=== PATIENT | female | born 1960 | race Caucasian/White ===

== ENCOUNTER 2024-12-28 07:43 | Outpatient (OUT) | payer MEDICARE, SELFPAY ==
--- OUTSIDE RECORDS SUMMARY | 2024-12-16 14:00 | XMS_ITS | Encounter Summary ---
Author Organization [facility] Address [address] [place] [address] Care Team Providers Care Senior Policy Analyst Name Role Phone Hunter Sorensen MD Primary Care Provider [phone] Risa Reese NP Unavailable [phone] Encounter Details DateTypeDepartmentCare Team (Latest Contact Info)Uwnmbeqwhgb40/09/2025 2:00 PM EDTOffice Visit [facility] [address] [facility] [address] [place] [id number] Risa Reese NP [address] [facility] [address] [place] [address] BMI 37.0-37.9, adult (Primary Dx); Restless leg syndrome; Hypercholesterolemia; Essential hypertension; Moderate mixed hyperlipidemia not requiring statin therapy; Chronic obstructive pulmonary disease, unspecified COPD type (HCC); BRYAN (obstructive sleep apnea); Fibromyalgia; Bilateral leg edema; Generalized edema; Major depressive disorder, single episode, mild Social History Tobacco UseTypesPacks/DayYears UsedDateSmoking Tobacco: Every DayCigarettes Smokeless Tobacco: Never Tobacco Cessation:Ready to Q uit: Not Asked; Counseling Given: Yes Alcohol UseStandard Drinks/WeekCommentsYes0 (1 standard drink = 0.6 oz pure alcohol)caffeine intake:2-3 cups per dayPHQ-2AnswerDate RecordedPatient Health Questionnaire-2 [id number] and Gender InformationValueDate RecordedSex Assigned at BirthNot on fileLegal SexFemale 05/22/2022 7:09 PM EDTGender IdentityNot on fileSexual OrientationNot on file documented as of this encounter Last Filed Vital Signs Vital SignReadingTime TakenCommentsBlood Mavyzyoe905/6812/16/2024 2:09 PM EDT Ifwou484412/16/2024 2:09 PM EDTTemperature--Respiratory [id number] 2:09 PM EDTOxygen Xkqjizulax73%12/16/2024 2:09 PM EDTInhaled Oxygen Concentration-- Eexhom376 kg (237 lb)12/16/2024 2:09 PM SXFOxcgce484.2 cm (5' 7 )12/16/2024 2:09 PM EDTBody Mass Index37.121 2:09 PM EDTdocumented in this encounter Functional Status * Over the past 2 weeks, how often have you been bothered by any of the following problems?QuestionAnswerDate of AssessmentAuthorLittle interest or pleasure in doing thingsSeveral days12/16/2024 1:58 PM Rafat INGRAMeling down, depressed, or hopelessSeveral days12/16/2024 1:58 PM OPAL INGRAM Patient Health Questionnaire-2 Okuhh835 1:58 PM OPAL INGRAM * If you checked off any problems on this questionnaire so far,QuestionAnswer Date of AssessmentAuthorHow difficult have these problems made it for you to do your work, take care of things at home, or get along with other people? Somewhat pupypvwxb37/09/2025 1:58 PM OPAL INGRAM documented as of this encounter Progress Notes * Risa Reese NP - 12/16/2024 2:00 PM EDT Images from the original note were not included. Subjective Patient ID: Rosaline Childs is a 64 y.o. female who presents for No chief complaint on file.. Alia presents today for a medication follow up for pain medication and she is also having rightheel pain and a sore on lower calf of her right leg. Pain This is a chronic problem. The current episode started more than 1 year ago. The problem occurs constantly. The problem has been gradually worsening since onset. The pain occurs in the context of recent emotional stress. The pain is present in the neck, left hand, left heel, right ankle, right arm,right lower leg, right knee, lower back, left hip, right clavicle, right ribs, right shoulder, right upper leg, right elbow, right foot, left knee, left lower leg, left ankle, left arm, left clavicle, right wrist, upper back, right heel, right hand, left shoulder, left elbow, left foot, left upper leg, right hip and left forearm. The pain is severe. The symptoms are aggravated by any movement, exercise and inactivity. Associated symptoms include stiffness. Past treatments include OTC NSAID, prescription NSAID, heat pack, cold pack and acetaminophen. The treatment provided no relief. Swelling is present on the feet. Her past medical history is significant for chronic back pain. Over the past 2 weeks, how often have you been bothered by any of the following problems? Little interest or pleasure in doing things: Several days Feeling down, depressed, or hopeless: Several days Patient Health Questionnaire-2 Score: 2 If you checked off any problems on this questionnaire so far, How difficult have these problems made it for you to do your work, take care of things at home, or get along with other people?: Somewhat difficult Current Outpatient Medications on File Prior to Visit Medication Sig Dispense Refill albuterol HFA 90 mcg/act inhaler INHALE 1 PUFF BY MOUTH EVERY 4 HOURS NEEDED FOR WHEEZING FOR SHORTNESS OF BREATH 9 g 0 albuterol HFA 90 mcg/act inhaler Inhale 1 puff in the morning and 1 puff at noon and 1 puff in the evening and 1 puff before bedtime. 18 g 3 Blood Glucose Monitoring Suppl (Rhytec True Met Air Gluc Meter) w/Device kit USE TO CHECK GLUCOSE THREE TIMES DAILY (MORNING,NOON AND EVENING) 1 kit 0 busPIRone (Buspar) 15 MG tablet Take 1 tablet (15 mg) by mouth in the morning and 1 tablet (15 mg) in the evening and 1 tablet (15 mg) before bedtime. 90 tablet 11 carisoprodol (Soma) 350 MG tablet Take 1 tablet (350 mg) by mouth 3 (three) times a day as needed for muscle spasms 90 tablet 0 diclofenac (Voltaren) 75 MG EC tablet Take 1 tablet (75 mg) by mouth 2 (two) times a day as needed (pain) Do not crush, chew, or split. 180 tablet 3 DULoxetine (Cymbalta) [address] capsule Take 1 capsule (30 mg) by mouth in the morning and 1 capsule(30 mg) before bedtime. 180 capsule 3 Jafybrwfhvt-Qiualdohz-Qvkbkv (Trelegy Ellipta) 100-62.5-25 MCG/ACT aerosol powder Inhale 1 puff Daily 60 each 3 furosemide (Lasix) 20 MG tablet Take 0.5 tablets (10 mg) by mouth Daily 45 tablet 3 hydroCHLOROthiazide (HYDRODiuril) 12.5 MG tablet Take 1 tablet by mouth once daily 100 tablet 3 lisinopril 5 MG tablet Take 1 tablet (5 mg) by mouth Daily 90 tablet 1 omega-3 (Fish Oil) 1200 MG capsule 1 capsule 1 (one) time each day at the same time omeprazole (PriLOSEC) [address] capsule Take 20 mg by mouth in the morning. oxybutynin (Ditropan) 5 MG tablet Take 1 tablet (5 mg) by mouth in the morning and 1 tablet (5 mg) in the evening and 1 tablet (5 mg) before bedtime. 270 tablet 0 PARoxetine (Paxil) 40 MG tablet Take 1 tablet (40 mg) by mouth in the morning. 90 tablet 3 pramipexole (Mirapex) 1.5 MG tablet Take 1 tablet (1.5 mg) by mouth in the morning and 1 tablet (1.5 mg) before bedtime. 180 tablet 3 True Metrix Blood Glucose Test test strip USE 1 STRIP TO CHECK GLUCOSE THREE TIMES DAILY (MORNING,EVENING AND BEFORE BED) 100 each 3 No current facility-administered medications on file prior to visit. I have reviewed and reconciled the history and medication list with the patient today. No Known Allergies Social History Tobacco Use Smoking status: Every Day Current packs/day: 0.50 Types: Cigarettes Smokeless tobacco: Never Vaping Use Vaping status: Never Used Substance Use Topics Alcohol use: Yes Comment: caffeine intake:2-3 cups per day Drug use: Defer Family History Problem Relation Name Age of Onset Alzheimer's disease Father Diabetes Father Past Medical History: Diagnosis Date Allergies Anxiety Arthritis Diabetes (HCC) Fibromyalgia GERD (gastroesophageal reflux disease) History of hysterectomy Hypertension Irritable bowel disease Kidney stones Stroke (HCC) Past Surgical History: Procedure Laterality Date ANKLE SURGERY Right CARDIAC CATHETERIZATION 02/2018 CATARACT EXTRACTION 2016 COLONOSCOPY HYSTERECTOMY 1980 KNEE SURGERY Bilateral 2011 Visit Vitals Smoking Status Every Day Review of Systems Constitutional: Negative. HENT: Negative. Eyes: Negative. Respiratory: Negative. Cardiovascular: Positive for leg swelling. Weeping edema Gastrointestinal: Negative. Genitourinary: Negative. Musculoskeletal: Positive for arthralgias, back pain, gait problem, myalgias, neck pain and stiffness. Skin: Negative. Psychiatric/Behavioral: Negative. Objective Physical Exam Vitals reviewed. Constitutional: Appearance: Normal appearance. HENT: Head: Normocephalic and atraumatic. Nose: Nose normal. Mouth/Throat: Mouth: Mucous membranes are moist. Pharynx: Oropharynx is clear. Eyes: Conjunctiva/sclera: Conjunctivae normal. Cardiovascular: Rate and Rhythm: Normal rate and regular rhythm. Pulmonary: Effort: Pulmonary effort is normal. Breath sounds: Normal breath sounds. Abdominal: General: Bowel sounds are normal. Palpations: Abdomen is soft. Musculoskeletal: Right lower leg: Edema present. Left lower leg: Edema present. Skin: General: Skin is warm and dry. Neurological: Mental Status: She is alert. Motor: Weakness present. Gait: Gait abnormal. Psychiatric: Mood and Affect: Mood is anxious and depressed. Affect is tearful. Assessment/Plan Diagnoses and all orders for this visit: BMI 37.0-37.9, adult - Tirzepatide-Weight Management (Zepbound) 2.5 MG/0.5ML solution auto-injector; Inject 2.5 mg underthe skin 1 (one) time per week Will attempt prior auth. Restless leg syndrome - pramipexole (Mirapex) 1 MG tablet; Take 1 tablet (1 mg) by mouth in the morning and 1 tablet (1 mg) in the evening and 1 tablet (1 mg) before bedtime. This is a chronic medical condition. Retless leg is affecting her in the afternoon. Will add an afternoon dose. Hypercholesterolemia - Tirzepatide-Weight Management (Zepbound) 2.5 MG/0.5ML solution auto-injector; Inject 2.5 mg underthe skin 1 (one) time per week This is a chronic medical condition that is stable since last assessment. No changes in treatment are suggested at this time. Weight loss would assist with reducing the LDL. Essential hypertension - Tirzepatide-Weight Management (Zepbound) 2.5 MG/0.5ML solution auto-injector; Inject 2.5 mg underthe skin 1 (one) time per week - Comprehensive metabolic panel; Future - CBC; Future This is a chronic medical condition that is stable since last assessment. No changes in treatment are suggested at this time. Moderate mixed hyperlipidemia not requiring statin therapy - Tirzepatide-Weight Management (Zepbound) 2.5 MG/0.5ML solution auto-injector; Inject 2.5 mg underthe skin 1 (one) time per week Weight loss would assist with a reduction in LDL. Chronic obstructive pulmonary disease, unspecified COPD type (HCC) - Tirzepatide-Weight Management (Zepbound) 2.5 MG/0.5ML solution auto-injector; Inject 2.5 mg underthe skin 1 (one) time per week Breathing would improve with weight loss. BRYAN (obstructive sleep apnea) - Tirzepatide-Weight Management (Zepbound) 2.5 MG/0.5ML solution auto-injector; Inject 2.5 mg underthe skin 1 (one) time per week This is a chronic medical condition that is stable since last assessment. No changes in treatment are suggested at this time. Fibromyalgia - Tirzepatide-Weight Management (Zepbound) 2.5 MG/0.5ML solution auto-injector; Inject 2.5 mg underthe skin 1 (one) time per week - traMADol (Ultram) 50 MG tablet; Take 1 tablet (50 mg) by mouth every 6 (six) hours if needed for severe pain for up to 7 days Reduced weight would assist with a reduction in pain. Discussed risks of this class of medication including the potential for abuse, reliance. Discussed importance of properly storing and disposing of the medication. Reviewed the goals of treatment, including improving pain control and improving functional status. Medication choice and dosage is appropriate for patient's current medical conditions. Reviewed the rules and regulations surrounding prescription of opioids and compliance at length with the patient. Patient will be required to be seen in our office at least every three months for monitoring. At each follow up visit I will reassess the patient's need for the medication. Patient isto have this medication prescribed only through this office. Failure to follow the rules and regulations will result in tapering and discontinuation of medications if applicable. Patient verbalized understanding. OARRS Report was reviewed for this patient. Bilateral leg edema - furosemide (Lasix) 20 MG tablet; Take 1 tablet (20 mg) by mouth Daily Pt has not been taking medication because she does not like to urinate so much but she has pitting edema. Encouraged pt to take medication. Generalized edema - Comprehensive metabolic panel; Future Lasix increased Major depressive disorder, single episode, mild Medication as directed. Counseling recommended. Verbalizes understanding of the need to be seen in the ER for suicidal/homicidal ideation, excessive stress, elevated blood pressure or palpitations. Pt offers understanding of treatment plan. I discussed the side effects of the medications described and to seek medical care if they arise. Discussed stress mgmt strategies, social support and importance of healthy diet, exercise and regular sleep habits. Advised on relaxation methods to decrease anxiety and depression. No follow-ups on file. documented in this encounter Plan of Treatment DateTypeDepartmentCare Team (Latest Contact Info)Krqvhbbgciw85/29/2025 10:00 AM EDTOffice Visit [facility] [address] [place] [address] [place] [address] Risa Reese NP [address] [facility] [address] [place] [address] 01/06/2025 3:20 PM EDTOffice Visit [facility] [address] [place] [address] [place] [address] Rufino Rush DPM [address] [address] NameTypePriorityAssociated DiagnosesOrder ScheduleComprehensive metabolic panel LabRoutine Essential hypertension Generalized edema Expected: 12/16/2024 (Approximate), Expires: 12/16/2025BCLabRoutine Essential hypertension Expected: 12/16/2024 (Approximate), Expires: 12/16/2025documented as of this encounter Visit Diagnoses Diagnosis BMI 37.0-37.9, adult- Primary Restless leg syndrome Restless legs syndrome (RLS) Hypercholesterolemia Pure hypercholesterolemia Essential hypertension Unspecified essential hypertension Moderate mixed hyperlipidemia not requiring statin therapy Chronic obstructive pulmonary disease, unspecified COPD type (HCC) BRYAN (obstructive sleep apnea) Obstructive sleep apnea (adult) (pediatric) Fibromyalgia Unspecified myalgia and myositis Bilateral leg edema Edema Generalized edema Edema Major depressive disorder, single episode, mild documented in this encounter Additional Health Concerns AssessmentNoted TimePHQ-9 Depression Total Score: 13010/05/2024 9:53 AM EDT documented as of this encounter Care Teams Team MemberRelationshipSpecialtyStart DateEnd Date Hunter Sorensen MD [address] [address] PCP - GeneralFamily Medicine07/16/22 Risa Reese NP [address] [address] PCP - ACO Reach07/09/23documented as of this encounter
--- OUTSIDE RECORDS SUMMARY | 2024-12-16 14:20 | XMS_ITS | Encounter Summary ---
Author Organization [facility] Address [address] [address] Care Team Providers Care Oracle Business Analyst Name Role Phone Hunter Sorensen MD Primary Care Provider [phone] Risa Reese TRAVELING OPERATOR Unavailable [phone] Reason for Referral * Imaging (Urgent) - Pending ReviewSpecialtyDiagnoses / ProceduresReferred By ContactReferred To ContactCardiology Diagnoses PVD (peripheral vascular disease) Procedures Vascular US lower extremity arterial Doppler complete Rufino Rush DPM [address] [address] Phone: tel: fax: [facility] CardioPulmonary [address] [facility], [address] Referral IDStatusReasonStart DateExpiration DateVisits RequestedVisits [id number] Review Perform Procedure / Reason for Visit * ReasonCommentsFoot UlcerHeel wound Encounter Details DateTypeDepartmentCare Team (Latest Contact Info)Stxgrvevtft18/09/2025 2:20 PM EDTOffice Visit [facility] 112 [facility] [address] [place] [phone] Rufino Rush DPM [address] [address] Foot ulcer, right, with fat layer exposed (HCC) (Primary Dx); Cellulitis of right foot; Diabetes mellitus due to underlying condition with diabetic polyneuropathy, unspecified whether rat exterminator insulin use (HCC); PVD (peripheral vascular disease) Social History Tobacco UseTypesPacks/DayYears UsedDateSmoking Tobacco: Every DayCigarettes Smokeless Tobacco: Never Tobacco Cessation:Ready to Q uit: Not Asked; Counseling Given: Yes Alcohol UseStandard Drinks/WeekCommentsYes0 (1 standard drink = 0.6 oz pure alcohol)caffeine intake:2-3 cups per dayPHQ-2AnswerDate RecordedPatient Health Questionnaire-2 [id number] and Gender InformationValueDate RecordedSex Assigned at BirthNot on fileLegal SexFemale 05/22/2022 7:09 PM EDTGender IdentityNot on fileSexual OrientationNot on file documented as of this encounter Last Filed Vital Signs Vital SignReadingTime TakenCommentsBlood Pressure--Pulse--Temperature-- Respiratory [id number] 2:40 PM EDTOxygen Saturation--Inhaled Oxygen Concentration--Jcfmry842 kg (237 lb)12/16/2024 2:40 PM ILQPbuldd685.2 cm (5' 7 ) 12/16/2024 2:40 PM EDTBody Mass Index37.121 2:40 PM EDTdocumented in this encounter Functional Status * Over the past 2 weeks, how often have you been bothered by any of the following problems?QuestionAnswerDate of AssessmentAuthorLittle interest or pleasure in doing thingsSeveral days12/16/2024 1:58 PM Rafat INGRAMeling down, depressed, or hopelessSeveral days12/16/2024 1:58 PM OPAL INGRAM Patient Health Questionnaire-2 Hshps812 1:58 PM OPAL INGRAM * If you checked off any problems on this questionnaire so far,QuestionAnswer Date of AssessmentAuthorHow difficult have these problems made it for you to do your work, take care of things at home, or get along with other people? Somewhat ewciedxng70/09/2025 1:58 PM OPAL INGRAM documented as of this encounter Progress Notes * Rufino Rush DPM - 12/16/2024 2:20 PM EDT Patient: Rosaline Childs : 1960 PCP: Hunter Sorensen MD SUBJECTIVE This is a 64 y.o. female that presents today for a chief complaint of ulceration to right heel thatis been present for the past few weeks. Patient denies nausea vomiting chills but states that she has had minimal to no drainage from the area. States it has started his big callus to her right heel has since become open and very painful. She also has history of smoking 1 pack per day of cigarettes Patient is type 2 diabetic with peripheral neuropathy. Allergies: No Known Allergies Past Medical History: Past Medical History: Diagnosis Date Allergies Anxiety Arthritis Diabetes (HCC) Fibromyalgia GERD (gastroesophageal reflux disease) History of hysterectomy Hypertension Irritable bowel disease Kidney stones Stroke (HCC) Medications: Current Outpatient Medications: albuterol HFA 90 mcg/act inhaler, INHALE 1 PUFF BY MOUTH EVERY 4 HOURS NEEDED FOR WHEEZING FOR SHORTNESS OF BREATH, Disp: 9 g, Rfl: 0 albuterol HFA 90 mcg/act inhaler, Inhale 1 puff in the morning and 1 puff at noon and 1 puff in theevening and 1 puff before bedtime., Disp: 18 g, Rfl: 3 Blood Glucose Monitoring Suppl ([employer] True Met Air Gluc Meter) w/Device kit, USE TO CHECK GLUCOSE THREE TIMES DAILY (MORNING,NOON AND EVENING), Disp: 1 kit, Rfl: 0 busPIRone (Buspar) 15 MG tablet, Take 1 tablet (15 mg) by mouth in the morning and 1 tablet (15 mg)in the evening and 1 tablet (15 mg) before bedtime., Disp: 90 tablet, Rfl: 11 carisoprodol (Soma) 350 MG tablet, Take 1 tablet (350 mg) by mouth 3 (three) times a day as needed for muscle spasms, Disp: 90 tablet, Rfl: 0 cephalexin (Keflex) 500 MG capsule, Take 1 capsule (500 mg) by mouth in the morning and 1 capsule (500 mg) in the evening and 1 capsule (500 mg) before bedtime. Do all this for 10 days. Take one tablet by mouth three times daily., Disp: 30 capsule, Rfl: 0 diclofenac (Voltaren) 75 MG EC tablet, Take 1 tablet (75 mg) by mouth 2 (two) times a day as needed(pain) Do not crush, chew, or split., Disp: 180 tablet, Rfl: 3 DULoxetine (Cymbalta) [address] capsule, Take 1 capsule (30 mg) by mouth in the morning and 1 capsule (30 mg) before bedtime., Disp: 180 capsule, Rfl: 3 Nudnythazcz-Oeoeobwsu-Nzimcd (Trelegy Ellipta) 100-62.5-25 MCG/ACT aerosol powder , Inhale 1 puff Daily, Disp: 60 each, Rfl: 3 furosemide (Lasix) 20 MG tablet, Take 1 tablet (20 mg) by mouth Daily, Disp: 90 tablet, Rfl: 3 hydroCHLOROthiazide (HYDRODiuril) 12.5 MG tablet, Take 1 tablet by mouth once daily, Disp: 100 tablet, Rfl: 3 lisinopril 5 MG tablet, Take 1 tablet (5 mg) by mouth Daily, Disp: 90 tablet, Rfl: 1 omega-3 (Fish Oil) 1200 MG capsule, 1 capsule 1 (one) time each day at the same time, Disp: , Rfl: omeprazole (PriLOSEC) [address] capsule, Take 20 mg by mouth in the morning., Disp: , Rfl: oxybutynin (Ditropan) 5 MG tablet, Take 1 tablet (5 mg) by mouth in the morning and 1 tablet (5 mg)in the evening and 1 tablet (5 mg) before bedtime., Disp: 270 tablet, Rfl: 0 PARoxetine (Paxil) 40 MG tablet, Take 1 tablet (40 mg) by mouth in the morning., Disp: 90 tablet, Rfl: 3 pramipexole (Mirapex) 1 MG tablet, Take 1 tablet (1 mg) by mouth in the morning and 1 tablet (1 mg)in the evening and 1 tablet (1 mg) before bedtime., Disp: 270 tablet, Rfl: 3 Tirzepatide-Weight Management (Zepbound) 2.5 MG/0.5ML solution auto-injector, Inject 2.5 mg under the skin 1 (one) time per week, Disp: 2 mL, Rfl: 0 traMADol (Ultram) 50 MG tablet, Take 1 tablet (50 mg) by mouth every 6 (six) hours if needed for severe pain for up to 7 days, Disp: 28 tablet, Rfl: 0 True Metrix Blood Glucose Test test strip, USE 1 STRIP TO CHECK GLUCOSE THREE TIMES DAILY (MORNING,EVENING AND BEFORE BED), Disp: 100 each, Rfl: 3 Social History: Social History Socioeconomic History Marital status: Spouse name: Not on file Number of children: Not on file Years of education: Not on file Highest education level: Not on file Occupational History Not on file Tobacco Use Smoking status: Every Day Current packs/day: 0.50 Types: Cigarettes Smokeless tobacco: Never Vaping Use Vaping status: Never Used Substance and Sexual Activity Alcohol use: Yes Comment: caffeine intake:2-3 cups per day Drug use: Defer Sexual activity: Defer Other Topics Concern Not on file Social History Narrative Not on file Social Drivers of Health Financial Resource Strain: Not on file Food Insecurity: No Food Insecurity (11/25/2022) Received from [facility] Hunger Screening Within the past 12 months we worried whether our food would run out before we got money to buy more.: Never True Within the past 12 months the food we bought just didn't last and we didn't have money to get more.: Never True Transportation Needs: Not on file Physical Activity: Not on file Stress: Not on file Social Connections: Not on file Intimate Partner Violence: Not on file Housing Stability: Not on file ROS: Gastrointestinal: denies abdominal pain, ulcers, or changes in appetite or bowel habits Musculoskeletal: Positive generalized arthritis to joints and denies loss of strength. Cardiovascular: denies CP, palpitations, irregular rhythms. Positive history of CVA OBJECTIVE LE EXAM: DERM: negative hair growth to b/l feet with thin and ruborous skin with poor skin turgor noted. Posterior plantar right heel region has a 0.5 cm with 0.5 cm x 0.4 cm subcutaneous thickness depth ulceration with slight erythema surrounding wound borders and hyperkeratotic tissue with negative probe to bone +1 pitting edema to bilateral ankles VASC: non Palpable pedal pulsed b/l with warm to cool tibia to toes b/l NEURO: 5.07 [place] Melody monofilament test intact to digits and forefoot bilaterally 125Hz tuning fork diminished to 1st MPJ bilaterally ORTHO: +5/5 DF/PF/IN/EV right, +5/5 DF/PF/IN/EV left. 20 degrees inversion and 10 degrees eversion STJ b/l. Ankle ROM less than 10 degrees b/l. Positive pain on palpation to right heel ulceration XRAY: US: ASSESSMENT 1. Foot ulcer, right, with fat layer exposed (HCC) 2. Cellulitis of right foot 3. Diabetes mellitus due to underlying condition with diabetic polyneuropathy, unspecified whether rat exterminator insulin use (HCC) 4. PVD (peripheral vascular disease) PLAN Patient be scheduled for KRIS PVRs at [facility] Patient be placed on oral antibiotic Patient had follow up radiographs in future and review of labs as well as will slightly be scheduled for surgical intervention in the near future as fair has a very painful lesion to her posterior right heel and will need wound care at that time Patient to have x-rays on future visits Patient also apply Betadine daily with dry sterile dressing and showed how to apply today to the right heel ulceration Rufino Rush DPM documented in this encounter Miscellaneous Notes * Addendum Note - Rufino Rush DPM - 12/16/2024 2:20 PM EDTAddended by: RUFINO RUSH on: 12/17/2024 06:29 AM Modules accepted: Orders documented in this encounter Plan of Treatment DateTypeDepartmentCare Team (Latest Contact Info)Hyftrznowkr24/29/2025 10:00 AM EDTOffice Visit [facility] [address] [facility] [address] [place] [phone] Risa Reese NP [address] [facility] 110 [place] [address] 01/06/2025 3:20 PM EDTOffice Visit [facility] [address] [facility] 120 [place] [phone] Rufino Rush DPM [address] [facility] [address] [place] [address] NameTypePriorityAssociated DiagnosesOrder ScheduleVascular US lower extremity arterial Doppler completeVascular UltrasoundHigh Priority PVD (peripheral vascular disease) Ordered: 12/17/2024documented as of this encounter Visit Diagnoses Diagnosis Foot ulcer, right, with fat layer exposed (HCC)- Primary Cellulitis of right foot Diabetes mellitus due to underlying condition with diabetic polyneuropathy, unspecified whether fdc insulin use (HCC) PVD (peripheral vascular disease) Unspecified peripheral vascular disease documented in this encounter Additional Health Concerns AssessmentNoted TimePHQ-9 Depression Total Score: 13010/05/2024 9:53 AM EDT documented as of this encounter Care Teams Team MemberRelationshipSpecialtyStart DateEnd Date Hunter Sorensen MD 112 [facility] 110 [place] [address] [facility] Risa Reese NP 112 [facility] 110 [place] [address] PCP - ACO [facility]07/09/23documented as of this encounter
--- OUTSIDE RECORDS SUMMARY | 2024-12-23 10:30 | XMS_ITS | Encounter Summary ---
Author Organization [facility] Address [address] [place] [address] Care Team Providers Care Associate Manager Name Role Phone Hunter Sorensen MD Primary Care Provider [phone] Risa Reese CHRISTMAS TREE GRADER Unavailable [phone] Reason for Referral * Imaging (Routine) - Pending ReviewSpecialtyDiagnoses / ProceduresReferred By ContactReferred To ContactDiagnostic Radiology Diagnoses Osteomyelitis of ankle or foot, acute, right (HCC) Procedures MR foot right wo IV contrast Rufino Rush DPM [address] [address] Phone: tel: fax: [facility] Schedule fax: Referral IDStatusReasonStart DateExpiration DateVisits RequestedVisits [id number]/ Reason for Visit * ReasonCommentsFollow-upRT HEEL ULCER Encounter Details DateTypeDepartmentCare Team (Latest Contact Info)Xwzpruskcml47/16/2025 10:30 AM EDTOffice Visit [facility] 112 [facility] 120 [place] [phone] Rufino Rush DPM [address] [address] Osteomyelitis of ankle or foot, acute, right (HCC) (Primary Dx); PVD (peripheral vascular disease); Cellulitis of right foot; Diabetes mellitus due to underlying condition with diabetic polyneuropathy, unspecified whether senior care insulin use (HCC); Foot ulcer, right, with fat layer exposed (HCC) Social History Tobacco UseTypesPacks/DayYears UsedDateSmoking Tobacco: Every DayCigarettes Smokeless Tobacco: Never Tobacco Cessation:Ready to Q uit: Not Asked; Counseling Given: Yes Alcohol UseStandard Drinks/WeekCommentsYes0 (1 standard drink = 0.6 oz pure alcohol)caffeine intake:2-3 cups per dayPHQ-2AnswerDate RecordedPatient Health Questionnaire-2 Usqob247CommentsUnknownSex and Gender InformationValueDate RecordedSex Assigned at BirthNot on fileLegal SexFemale 05/22/2022 7:09 PM EDTGender IdentityNot on fileSexual OrientationNot on file documented as of this encounter Last Filed Vital Signs Vital SignReadingTime TakenCommentsBlood Pressure--Pulse--Temperature-- Respiratory Scpz6037 10:28 AM EDTOxygen Saturation--Inhaled Oxygen Concentration--Wakvgg063 kg (237 lb)12/23/2024 10:28 AM XSFDzkwyl329.2 cm (5' 7 )12/23/2024 10:28 AM EDTBody Mass Index37.121 10:28 AM EDTdocumented in this encounter Progress Notes * Rufino Rush, DPM - 12/23/2024 10:30 AM EDT Patient: Rosaline Childs : 1960 PCP: Hunter Sorensen MD SUBJECTIVE Pt present today for follow up of ulceration to right heel of foot. Pt denies any n/f/v/c. Patient states that they have been using the following treatments for the ulcer of betadine. Pt is a DM2. Pt also presents today for follow up of cellulitis to the right heel ulcer and has been taking oralabx with positive improvement. She also has hx of PVD and awaits rayo/pvr testing at [facility]. Allergies: No Known Allergies Past Medical History: [...] g, Rfl: 3 Blood Glucose Monitoring Suppl (Poolami True Met Air Gluc Meter) w/Device kit, [...] before bedtime., Disp: 180 capsule, Rfl: 3 Lgevmleuaky-Hnthgyczg-Relhym (Trelegy Ellipta) 100-62.5-25 MCG/ACT aerosol powder , [...] before bedtime., Disp: 270 tablet, Rfl: 3 traMADol (Ultram) 50 MG tablet, Take 1 tablet (50 mg) by mouth every 6 (six) hours if needed for severe pain for up to 7 days, Disp: 28 tablet, Rfl: 0 True Metrix Blood Glucose Test test strip, USE 1 STRIP TO CHECK GLUCOSE THREE TIMES DAILY (MORNING,EVENING AND BEFORE BED), Disp: 100 each, Rfl: 3 Zepbound 2.5 MG/0.5ML solution auto-injector, INJECT CONTENT OF 1 PEN SUBCUTANEOUSLY ONCE A WEEK, Disp: 4 mL, Rfl: 0 Social History: Social History Socioeconomic History Marital [...] Insecurity: No Food Insecurity (11/25/2022) Received from [facility] Hunger Screening Within the past 12 months [...] file Housing Stability: Not on file ROS: GI: denies loose or watery stool on antibiotic Musculoskeletal: Positive generalized arthritis to joints and denies loss of strength. Cardiovascular: denies CP, palpitations, irregular rhythms. Positive history of CVA OBJECTIVE LE EXAM: DERM: negative hair growth to b/l feet with thin and ruborous skin with poor skin turgor noted. Posterior plantar right heel region has a 0.5 cm with 0.5 cm x 0.4 cm subcutaneous thickness depth ulceration with greatly diminished erythema surrounding wound borders and hyperkeratotic tissue withnegative probe to bone +1 pitting edema to bilateral ankles VASC: non Palpable pedal pulsed b/l with warm to cool tibia to toes b/l NEURO: 5.07 [place] Melody monofilament test intact to digits and forefoot bilaterally 125Hz tuning fork diminished to 1st MPJ bilaterally ORTHO: +5/5 DF/PF/IN/EV right, +5/5 DF/PF/IN/EV left. 20 degrees inversion and 10 degrees eversion STJ b/l. Ankle ROM less than 10 degrees b/l. Positive pain on palpation to right heel ulceration XRAY: XR foot 3+ views right Imaging Result: Negative gas noted in tissue with area of ulceration present and negative gross osteolysis noted with slight sclerosis around area of ulceration however indeterminate for osteomyelitis and may follow up with MRI if necessary US: ASSESSMENT 1. Cellulitis of right foot 2. PVD (peripheral vascular disease) 3. Diabetes mellitus due to underlying condition with diabetic polyneuropathy, unspecified whether senior care insulin use (HCC) 4. Foot ulcer, right, with fat layer exposed (HCC) 5. Osteomyelitis of ankle or foot, acute, right (HCC) PLAN Patient be scheduled for RAYO PVRs at [facility] and will schedule MRI Continue with oral antibiotic Reviewed xrays today with patient Sharp debridement with 15 blade of subcutaneous ulceration to right foot with active bleeding notedand removal and excision of fibrotic and necrotic tissue to wound and DSD applied with neosporin. Pt to continue with betadine daily. Order MRI [facility] Rufino Rush DPM documented in this encounter Plan of Treatment DateTypeDepartmentCare Team (Latest Contact Info)Dzxugnkjykv78/29/2025 10:00 AM EDTOffice Visit [facility] [address] [facility] [address] [place] [address] Risa Reese NP [address] [facility] 110 [place] [address] 01/06/2025 3:20 PM EDTOffice Visit [facility] [address] [facility] 120 [place] [address] Rufino Rush DPM 3006 [facility] 5 [place] [address] NameTypePriorityAssociated DiagnosesOrder ScheduleMR foot right wo IV contrast ImagingRoutine Osteomyelitis of ankle or foot, acute, right (HCC) Ordered: 12/23/2024documented as of this encounter Procedures Procedure NamePriorityDate/TimeAssociated DiagnosisCommentsXR FOOT 3+ VIEWS NUTLDDlrpbci41/16/2025 10:44 AM EDT Foot ulcer, right, with fat layer exposed (HCC) documented in this encounter Results * XR foot 3+ views right (12/23/2024 10:44 AM EDT)Anatomical RegionLaterality ModalityLower Extremities, FootRightRadiographic ImagingSpecimen (Source) Anatomical Location / LateralityCollection Method / VolumeCollection Time Received Time Narrative 12/23/2024 10:46 AM EDT Imaging Result: Negative gas noted in tissue with area of ulceration present and negative gross osteolysis noted with slight sclerosis around area of ulceration however indeterminate for osteomyelitis and may follow up with MRI if necessary Authorizing ProviderResult TypeResult StatusNicholvalentina Rush DPMIMG XR PROCEDURESFinal Result documented in this encounter Visit Diagnoses Diagnosis Osteomyelitis of ankle or foot, acute, right (HCC)- Primary PVD (peripheral vascular disease) Unspecified peripheral vascular disease Cellulitis of right foot Diabetes mellitus due to underlying condition with diabetic polyneuropathy, unspecified whether senior care insulin use (HCC) Foot ulcer, right, with fat layer exposed (HCC) documented in this encounter Additional Health Concerns AssessmentNoted TimePHQ-9 Depression Total Score: 9:53 AM EDT documented as of this encounter Care Teams Team MemberRelationshipSpecialtyStart DateEnd Date Hunter Sorensen MD [address] [facility] 110 [place] [address] PCP - GeneralFamily Medicine07/16/22 Risa Reese NP [address] [facility] 110 [place] [address] PCP - ACO [facility]07/09/23documented as of this encounter
--- OUTSIDE RECORDS SUMMARY | 2024-12-23 10:45 | XMS_ITS | Encounter Summary ---
Author Organization [facility] Address [address] [place] [address] Care Team Providers Care Journeyman Apprentice Electricians Name Role Phone Hunter Sorensen MD Primary Care Provider [phone] Risa Reese METEOROLOGIST LIAISON Unavailable Encounter Details DateTypeDepartmentCare Team (Latest Contact Info)Trquhgnfiha81/16/2025 10:45 AM EDTAncillary Procedure [facility] [address] [place] [address] [place] [address] Social History Tobacco UseTypesPacks/DayYears UsedDateSmoking Tobacco: Every DayCigarettes Smokeless Tobacco: NeverAlcohol UseStandard Drinks/WeekCommentsYes0 (1 standard drink = 0.6 oz pure alcohol)caffeine intake:2-3 cups per dayPHQ-2AnswerDate RecordedPatient Health Questionnaire-2 Hysha446CommentsUnknown Sex and Gender InformationValueDate RecordedSex Assigned at BirthNot on file Legal UcrWuxrks80/15/2023 7:09 PM EDTGender IdentityNot on fileSexual OrientationNot on filedocumented as of this encounter Plan of Treatment DateTypeDepartmentCare Team (Latest Contact Info)Vdqhlmibzoh48/29/2025 10:00 AM EDTOffice Visit [facility] [address] [place] [address] [place] [address] Risa Reese NP [address] [place] 110 [place] [address] 01/06/2025 3:20 PM EDTOffice Visit [facility] [address] [place] [address] [place] [address] Rufino Rush, DPM 3006 [facility] 5 [place] [address] documented as of this encounter Procedures Procedure NamePriorityDate/TimeAssociated DiagnosisCommentsXR FOOT 3+ VIEWS IIRLEXvooqjh74/16/2025 10:44 AM EDT Foot ulcer, right, with [...] Result documented in this encounter Visit Diagnoses Not on filedocumented in this encounter Additional Health Concerns AssessmentNoted TimePHQ-9 Depression Total Score: 1307 9:53 AM EDT documented as of this encounter Care Teams Team MemberRelationshipSpecialtyStart DateEnd Date Hunter Sorensen MD [address] [facility] 110 [place] [address] PCP - GeneralFamily Medicine07/16/22 Risa Reese NP [address] [facility] 110 [place] [address] PCP - ACO [facility]07/09/23documented as of this encounter
--- OUTSIDE RECORDS SUMMARY | 2024-12-28 07:50 | XMS_ITS | Encounter Summary ---
Author Organization [facility] Address [address] [place] [address] [place] [address] Care Team Providers Care Food Science Professor Name Role Phone Hunter Sorensen MD Primary Care Provider [phone] Risa Reese LAUNDRY MACHINE TENDER Unavailable [phone] Encounter Details DateTypeDepartmentCare Team (Latest Contact Info)Gbyaxldpexi03/09/2025amboo flowsheet [facility] [address] [place] [address] [place] [address] Risa Reese NP [address] [place] 110 [place] [address] Social History Tobacco UseTypesPacks/DayYears UsedDateSmoking Tobacco: Every DayCigarettes Smokeless Tobacco: NeverAlcohol UseStandard Drinks/WeekCommentsYes0 (1 standard drink = 0.6 oz pure alcohol)caffeine intake:2-3 cups per dayPHQ-2AnswerDate RecordedPatient Health Questionnaire-2 Ycppa388CommentsUnknown Sex and Gender InformationValueDate RecordedSex Assigned at BirthNot on file Legal VvkGfdnyh18/15/2023 7:09 PM EDTGender IdentityNot on fileSexual OrientationNot on filedocumented as of this encounter Plan of Treatment DateTypeDepartmentCare Team (Latest Contact Info)Qogjnmzjxlm40/29/2025 10:00 AM EDTOffice Visit [facility] [place] [facility] [address] [place] [address] [place] [address] Risa Reese NP [address] [place] 110 [place], [place] [address] 01/06/2025 3:20 PM EDTOffice Visit [facility] [address] [facility] 120 [place] [address] Rufino Rush DPRyan 3006 [facility] 5 [place] [address] documented as of this encounter Visit Diagnoses Not on filedocumented in this encounter Additional Health Concerns AssessmentNoted TimePHQ-9 Depression Total Score: 13010/05/2024 9:53 AM EDT documented as of this encounter Care Teams Team MemberRelationshipSpecialtyStart DateEnd Date Hunter Sorensen MD [address] [place] [address] [place] [address] PCP - GeneralFamily Medicine07/16/22 Risa Reese NP [address] [place] [address] [place] [address] PCP - ACO [facility]07/09/23documented as of this encounter
--- OUTSIDE RECORDS SUMMARY | 2024-12-28 07:50 | XMS_ITS | Encounter Summary ---
Author Organization [facility] Address [address] [place] [address] Care Team Providers Care Vp Emerging Media Name Role Phone Hunter Sorensen MD Primary Care Provider Risa Reese SET UP MECHANIC COIL WINDING MACHINES Unavailable [phone] Encounter Details DateTypeDepartmentCare Team (Latest Contact Info)Ysukhdbavsg36/16/2025Travel Social History Tobacco UseTypesPacks/DayYears UsedDateSmoking Tobacco: Every DayCigarettes Smokeless Tobacco: NeverAlcohol UseStandard Drinks/WeekCommentsYes0 (1 standard drink = 0.6 oz pure alcohol)caffeine intake:2-3 cups per dayPHQ-2AnswerDate RecordedPatient Health Questionnaire-2 Lwctt143CommentsUnknown Sex and Gender InformationValueDate RecordedSex Assigned at BirthNot on file Legal XqmVgrpij80/15/2023 7:09 PM EDTGender IdentityNot on fileSexual OrientationNot on filedocumented as of this encounter Plan of Treatment DateTypeDepartmentCare Team (Latest Contact Info)Pdkxnxxfxww95/29/2025 10:00 AM EDTOffice Visit [facility] [address] [place] [address] [place] [address] Risa Reese NP [address] [place] 110 [place] [address] 01/06/2025 3:20 PM EDTOffice Visit [facility] [address] [place] [address] [place] [address] Rufino Rush DPM 3006 [facility] 5 [place] [address] documented as of this encounter Visit Diagnoses Not on filedocumented in this encounter Additional Health Concerns AssessmentNoted TimePHQ-9 Depression Total Score: 9:53 AM EDT documented as of this encounter Care Teams Team MemberRelationshipSpecialtyStart DateEnd Date Hunter Sorensen MD 112 [facility] 110 [place] [address] PCP - GeneralFamily Medicine07/16/22 Risa Reese NP 112 [facility] 110 [place] [address] PCP - ACO [facility]07/09/23documented as of this encounter
--- OUTSIDE RECORDS SUMMARY | 2024-12-28 07:50 | XMS_ITS | Clinical Summary ---
Author Organization [facility] Address [address] [facility] [place] [address] Care Team Providers Care Front End Specialist Name Role Phone Hunter Sorensen MD Primary Care Provider [phone] Risa Reese MUSIC REHABILITATION THERAPIST Unavailable [phone] Allergies No known active allergies Medications MedicationSigDispense QuantityRefillsLast FilledStart DateEnd DateStatus omeprazole (PriLOSEC) [address] capsule Take 20 mg by mouth in the morning.Active omega-3 (Fish Oil) 1200 MG capsule 1 capsule 1 (one) time each day at the same timeActive True Metrix Blood Glucose Test test strip Indications:Type 2 diabetes mellitus with other specified complication, without long-term current use of insulin (HCC)USE 1 STRIP TO CHECK GLUCOSE THREE TIMES DAILY (MORNING,EVENING AND BEFORE BED) 100 each ctive Blood Glucose Monitoring Suppl (ReliOn True Met Air Gluc Meter) w/Device kit Indications:Type 2 diabetes mellitus with other specified complication, without long-term current use of insulin (HCC)USE TO CHECK GLUCOSE THREE TIMES DAILY (MORNING,NOON AND EVENING) 1 kit 09/29/2023ctive busPIRone (Buspar) 15 MG tablet Indications:Depression, unspecified depression type,AnxietyTake 1 tablet (15 mg) by mouth in the morning and 1 tablet (15 mg) in the evening and 1 tablet (15 mg) before bedtime. 90 tablet 4Active lisinopril 5 MG tablet Indications:Essential hypertensionTake 1 tablet (5 mg) by mouth Daily 90 tablet 5Active PARoxetine (Paxil) 40 MG tablet Indications:Anxiety,Depression, unspecified depression typeTake 1 tablet (40 mg) by mouth in the morning. 90 tablet /21/2026Active carisoprodol (Soma) 350 MG tablet Indications:Muscle spasms of both lower extremitiesTake 1 tablet (350 mg) by mouth 3 (three) times a day as needed for muscle spasms 90 tablet 5Active diclofenac (Voltaren) 75 MG EC tablet Indications:Primary osteoarthritis of right hipTake 1 tablet (75 mg) by mouth 2 (two) times a day as needed (pain) Do not crush, chew, or split. 180 tablet 506Active Vvpwutmjkqq-Atyyxoiqr-Bjzqlx (Trelegy Ellipta) 100-62.5-25 MCG/ACT aerosol powder Indications:Chronic obstructive pulmonary disease, unspecified COPD type (HCC) Inhale 1 puff Daily 60 each 5Active DULoxetine (Cymbalta) [address] capsule Indications:Depression, unspecified depression typeTake 1 capsule (30 mg) by mouth in the morning and 1 capsule (30 mg) before bedtime. 180 capsule 5Active albuterol HFA 90 mcg/act inhaler Indications:Chronic obstructive pulmonary disease, unspecified COPD type (HCC) INHALE 1 PUFF BY MOUTH EVERY 4 HOURS NEEDED FOR WHEEZING FOR SHORTNESS OF BREATH 9 g 5Active hydroCHLOROthiazide (HYDRODiuril) 12.5 MG tablet Indications:Essential hypertensionTake 1 tablet by mouth once daily 100 tablet 5Active oxybutynin (Ditropan) 5 MG tablet Indications:Overactive bladderTake 1 tablet (5 mg) by mouth in the morning and 1 tablet (5 mg) in the evening and 1 tablet (5 mg)before bedtime. 270 tablet 5Active albuterol HFA 90 mcg/act inhaler Indications:Chronic obstructive pulmonary disease, unspecified COPD type (HCC) Inhale 1 puff in the morning and 1 puff at noon and 1 puff in the evening and 1 puff before bedtime. 18 g 5Active pramipexole (Mirapex) 1 MG tablet Indications:Restless leg syndromeTake 1 tablet (1 mg) by mouth in the morning and 1 tablet (1 mg) in the evening and 1 tablet (1 mg)before bedtime. 270 tablet /ctive furosemide (Lasix) 20 MG tablet Indications:Bilateral leg edemaTake 1 tablet (20 mg) by mouth Daily 90 tablet ctive Zepbound 2.5 MG/0.5ML solution auto-injector Indications:BMI 37.0-37.9, adult,BRYAN (obstructive sleep apnea)INJECT CONTENT OF 1 PEN SUBCUTANEOUSLY ONCE A WEEK 4 mL 12/22/2024tive furosemide (Lasix) 20 MG tablet Indications:Bilateral leg edemaTake 0.5 tablets (10 mg) by mouth Daily 45 tablet Discontinued(Reorder) pramipexole (Mirapex) 1.5 MG tablet Indications:Restless leg syndromeTake 1 tablet (1.5 mg) by mouth in the morning and 1 tablet (1.5 mg) before bedtime. 180 tablet Discontinued(Reorder) Tirzepatide-Weight Management (Zepbound) 2.5 MG/0.5ML solution auto-injector Indications:BMI 37.0-37.9, adult,Hypercholesterolemia,Essential hypertension, Moderate mixed hyperlipidemia not requiring statin therapy,Chronic obstructive pulmonary disease, unspecified COPD type (HCC),BRYAN (obstructive sleep apnea), FibromyalgiaInject 2.5 mg under the skin 1 (one) time per week 2 mL Discontinued traMADol (Ultram) 50 MG tablet Indications:FibromyalgiaTake 1 tablet (50 mg) by mouth every 6 (six) hours if needed for severe pain for up to 7 days 28 tablet /Expired cephalexin (Keflex) 500 MG capsule Indications:Cellulitis of right footTake 1 capsule (500 mg) by mouth in the morning and 1 capsule (500 mg) in the evening and 1 capsule(500 mg) before bedtime. Do all this for 10 days. Take one tablet by mouth three times daily. 30 capsule /Expired Active Problems ProblemNoted DateDiagnosed EbiiGncoemvl43/02/2352Nziwzti61/11/2023hest pain 12/09/2022cquired absence of uterus with remaining cervical stump09/24/2022 History of total puvkmdbwlipy59/18/8414Hxqdepf70/18/2023ardiac ischemia 09/24/2022ngina meznqvuxx58/18/2023arotid artery ujesxrwx16/18/2023hronic obstructive pulmonary qecuwzl8909/24/20223266Qxdjatjops47/18/2023ifficulty swallowing 09/24/2022Essential qpaiirjeemvc36/18/0937Gifobjbju69/18/2023 Bvxexntuulwdvpcfpkfx95/18/4843Vqpcfbhqyqdavb19/18/9779Vyeatxvp43/18/2023 Shgraninkcmi41/18/2023New daily persistent /18/2023OSA (obstructive sleep apnea)09/24/2022Overactive iubjesi0209/24/2022Restless leg syndrome 09/24/2022Iron deficiency iztnny4005/16/2020bnormal nuclear stress test12/05/2017 Overview (12/09/2022): Added automatically from request for surgery [id number] Musculoskeletal pain01/29/2011 Encounters DateTypeDepartmentCare RausBxbjusivcdb61/16/2025 10:45 AM EDTAncillary Procedure [facility] [address] [facility] [address] [place] [address] 12/23/2024 10:30 AM EDTOffice Visit [facility] [address] [facility] [address] [place] [address] Rufino Rush DPM Osteomyelitis of ankle or foot, acute, right (HCC) (Primary Dx); PVD (peripheral vascular disease); Cellulitis of right foot; Diabetes mellitus due to underlying condition with diabetic polyneuropathy, unspecified whether shelter insulin use ([facility]); Foot ulcer, right, with fat layer exposed ([facility])12/23/2024amboo flowsheet [facility] [address] [facility] [address] [place] [address] Rufino Rush DPM 12/23/20249944Jadfwx58/14/2025bstract [facility] [address] [facility] [address] [place] [address] Rufino Rush DPM 12/21/2024Refill [facility] [place] [facility] [address] [facility] [address] [place] [address] Risa Reese NP BMI 37.0-37.9, adult; BRYAN (obstructive sleep apnea)12/17/2024bstract [facility] [address] [facility] [address] [place] [address] Rufino Rush DPM 12/17/2024Refill [facility] [place] [facility] [address] [facility] [address] [place] [address] Marianna Vincent PA Xalbmvmrzcth67/09/2025 2:20 PM EDTOffice Visit [facility] [address] [facility] [address] [place] [address] Rufino Rush, DPRyan Foot ulcer, right, with fat layer exposed (HCC) (Primary Dx); Cellulitis of right foot; Diabetes mellitus due to underlying condition with diabetic polyneuropathy, unspecified whether shelter insulin use (HCC); PVD (peripheral vascular disease)12/16/2024 2:00 PM EDTOffice Visit [facility] [place] [facility] [address] [facility] [address] [place] [address] Risa Reese NP BMI 37.0-37.9, adult (Primary Dx); Restless leg syndrome; Hypercholesterolemia; Essential hypertension; Moderate mixed hyperlipidemia not requiring statin therapy; Chronic obstructive pulmonary disease, unspecified COPD type (HCC); BRYAN (obstructive sleep apnea); Fibromyalgia; Bilateral leg edema; Generalized edema; Major depressive disorder, single episode, mild12/16/2024amboo flowsheet [facility] [place] [facility] [address] [facility] [address] [place] [address] Risa Reese NP 12/16/20249938Ibugfq56/29/2025 10:00 AM EDTOffice Visit [facility] [place] [facility] [address] [facility] [address] [place] [address] Risa Reese, JESSICA Restless leg syndrome (Primary Dx); Bilateral leg edema10/05/2024amboo flowsheet [facility] [place] [facility] [address] [facility] [address] [place] [address] Risa Reese NP 10/05/20240059Mblsjc90/21/2025[facility] [address] [facility] [address] [place] [address] Amina Davidson MA Chronic obstructive pulmonary disease, unspecified COPD type (HCC)from Last 3 Months Immunizations ImmunizationAdministration DatesNext DueInfluenza, injectable, quadrivalent, preservative free12/24/2021,01/03/2021,02/07/2020 Family History Medical HistoryRelationNameCommentsAlzheimer's diseaseFatherDiabetesFather RelationNameStatusCommentsFatherDeceasedMotherDeceased Social History Tobacco UseTypesPacks/DayYears UsedDateSmoking Tobacco: Every DayCigarettes Smokeless Tobacco: Never Tobacco Cessation:Ready to Q uit: Not Asked; Counseling Given: Yes Alcohol UseStandard Drinks/WeekCommentsYes0 (1 standard drink = 0.6 oz pure alcohol)caffeine intake:2-3 cups per dayPHQ-2AnswerDate RecordedPatient Health Questionnaire-2 Hqlwe180CommentsUnknownSex and Gender InformationValueDate RecordedSex Assigned at BirthNot on fileLegal SexFemale 05/22/2022 7:09 PM EDTGender IdentityNot on fileSexual OrientationNot on file Last Filed Vital Signs Vital SignReadingTime TakenCommentsBlood Jgaozgib029/6810 2:09 PM EDT Mpmdb061512/16/2024 2:09 PM XRJZshoukshdsk74.9 ??C (96.7 ??F)05/13/2024 2:44 PM ESTRespiratory Clly0412 10:28 AM EDTOxygen Qanwlikzde81%12/16/2024 2:09 PM EDTInhaled Oxygen Concentration--Kowfrg309 kg (237 lb)12/23/2024 10:28 AM EDT Vimbjg647.2 cm (5' 7 )12/23/2024 10:28 AM EDTBody Mass Index37.121 10:28 AM EDT Plan of Treatment DateTypeDepartmentCare Team (Latest Contact Info)Vnpbhvfbttb68/29/2025 10:00 AM EDTOffice Visit [facility] [place] [facility] [address] [facility] [address] [place] [address] Risa Reese, MUSIC REHABILITATION THERAPIST [address] [facility] [address] [place] [address] 01/06/2025 3:20 PM EDTOffice Visit [facility] [address] [facility] [address] [place] [address] Rufino Rush, DPRyan [address] [facility] 5 [place] [address] Health MaintenanceDue DateLast DoneCommentsCT Quzrkjfnjrqv06/13/1961FIT-DNA 1960FIT1960FOBT1960 1751Tqdbdltnavgeq03/13/1961Diabetes: Retinopathy Sxnwcbthz21/13/1971Diabetes: Urine Protein Ovkltcvkr42/13/1980 Xpembnaxv60/06/2020, 08/11/2020, 01/13/2019, Additional history exists Diabetes: Hemoglobin A1C501/, 09/25/2023Influenza Vaccine (#1) /, 01/03/2021, 02/07/2020Medicare Annual Wellness (AWV) 601/, 12/10/20220853Dqdoudohlyu71Colorectal Cancer Hvlgwkrpb59/05/2029 Procedures Procedure NamePriorityDate/TimeAssociated DiagnosisCommentsXR FOOT 3+ VIEWS OMYMGFcrxfrc63/16/2025 10:44 AM EDT Foot ulcer, right, with fat layer exposed (HCC) POCT GLYCOSYLATED HEMOGLOBIN (HGB A1C)Djagjgb5003/30/2024 10:56 AM EST Type 2 diabetes mellitus without complication, without long-term current use of insulin (HCC) BI MAMMOGRAM SCREENING TOMOSYNTHESIS OIGQVJFRZUudswha18/04/2021 Encounter for screening mammogram for malignant neoplasm of breast Encounter for general adult medical examination without abnormal findings BLRQTNOODLUWxejoqr03/05/2019 12:00 PM EST from Last 3 Months or Most Recently Relevant to Health Maintenance Results * XR foot 3+ views right [...] with MRI if necessary Authorizing ProviderResult TypeResult StatusRufino Rush DPMIMG XR PROCEDURESFinal Result * POCT glycosylated hemoglobin (Hb A1C) docked device (03/30/2024 10:56 AM EST) ComponentValueRef RangeTest MethodAnalysis TimePerformed AtPathologist SignatureHemoglobin A1C6.3Specimen (Source)Anatomical Location / Laterality Collection Method / VolumeCollection TimeReceived TimeBloodVenous blood specimen / Wxxjcbw3903/30/2024 10:56 AM EST Narrative Authorizing ProviderResult TypeResult Dylon Reese NPPOINT OF CARE TEST ENTER/EDIT ORDERABLESFinal Result * Bilateral screening mammogram with tomosynthesis (08/11/2020)Anatomical Region LateralityModalityBreastBilateralMammographySpecimen (Source)Anatomical Location / LateralityCollection Method / VolumeCollection TimeReceived Time Narrative 08/11/2020 12:00 AM EDT PERFORMED AT [facility] LOCATION:[place] 112 110 RESULTS BELOW MAMM SCREENING BILATERAL W CAD WITH TOMOSYNTHESIS HISTORY: Screening. COMPARISON: 01/13/2019 FINDINGS: There are scattered areas of fibroglandular density. ??Negative for malignancy. Computer-aided detection was used in the interpretation of this examination. IMPRESSION: BIRADS 1 - Negative. ??Normal interval follow-up in 12 months. OVERALL ASSESSMENT- NEGATIVE. A letter of notification will be sent to the patient regarding the results. Finalized by Moses Cabral MD on 08/11/2020 1:07 PM 1 b MAMM 1 YR Procedure Note CONVERSION, GENERIC - 09/13/2022 PERFORMED AT [facility] LOCATION:[place] 112 110 RESULTS BELOW MAMM SCREENING BILATERAL W CAD WITH TOMOSYNTHESIS HISTORY: Screening. COMPARISON: 01/13/2019 FINDINGS: There are scattered areas of fibroglandular density. Negativefor malignancy. Computer-aided detection was used in the interpretation of thisexamination. IMPRESSION: BIRADS 1 - Negative. Normal interval follow-up in 12 months. OVERALL ASSESSMENT- NEGATIVE. A letter of notification will be sent to the patient regarding theresults. Finalized by Moses Cabral MD on 08/11/2020 1:07 PM 1 b MAMM 1 YR Authorizing ProviderResult TypeResult StatusHunter Sorensen MDIMG BI PROCEDURES Final Result * Colonoscopy (02/11/2019 12:00 PM EST)Anatomical RegionLateralityModality EndoscopySpecimen (Source)Anatomical Location / LateralityCollection Method / VolumeCollection TimeReceived Time02/11/2019 12:00 PM EST Narrative 02/11/2019 12:00 PM EST PERFORMED AT [facility] LOCATION:[id number] Procedure Note CONVERSION, GENERIC - 07/24/2022 PERFORMED AT [facility] LOCATION:[id number] Authorizing ProviderResult TypeResult StatusTroy Hoover MDENDOSCOPY PROCEDURE ORDERABLESFinal Result from Last 3 Months or Most Recently Relevant to Health Maintenance Insurance [address] [place] [address] Care Teams Team MemberRelationshipSpecialtyStart DateEnd Date Hunter Sorensen MD [address] [facility] 110 [place] [address] [facility] - [facility] Risa Reese NP [address] [facility] [address] [place] [address] PCP - [facility]07/09/23
--- OUTSIDE RECORDS SUMMARY | 2024-12-28 07:50 | XMS_ITS | Clinical Summary ---
Author Organization [facility] Address [address], [address] [place] [address] Care Team Providers Care Accounting Office Manager Name Role Phone Risa Reese YANIRA - MATERIAL HANDLER Primary Care Provider Allergies No known active allergies Medications MedicationSigDispense QuantityRefillsLast FilledStart DateEnd DateStatus busPIRone (BUSPAR) 5 MG tablet Take 5 mg by mouth 3 times dailyActive gabapentin (NEURONTIN) 100 MG capsule Take 100 mg by mouth 3 times daily..Active hydrochlorothiazide (HYDRODIURIL) 12.5 MG tablet Take 12.5 mg by mouth dailyActive lisinopril (PRINIVIL;ZESTRIL) 5 MG tablet Take 5 mg by mouth dailyActive omeprazole (PRILOSEC) 20 MG delayed release capsule Take 20 mg by mouth dailyActive oxybutynin (DITROPAN) 5 MG tablet Take 5 mg by mouth dailyActive Social History Tobacco UseTypesPacks/DayYears UsedDateSmoking Tobacco: Never Assessed CommentsNoSex and Gender InformationValueDate RecordedSex Assigned at BirthNot on fileLegal VecNxtcec42/10/2013 2:40 PM ESTGender IdentityNot on fileSexual OrientationNot on file Last Filed Vital Signs Vital SignReadingTime TakenCommentsBlood Ghnedunp263/6409 4:18 PM EDT Jykkj7888 4:18 PM QFCDhapygwbxyi27.6 ??C (99.6 ??F)11/23/2017 2:04 PM EDTRespiratory Ovhr8389 4:18 PM EDTOxygen Xyxrvracxf78%11/23/2017 4:18 PM EDTInhaled Oxygen Concentration--Dtbybc79.6 kg (180 lb)11/23/2017 2:04 PM EDT Xtdzly348.2 cm (5' 7 )11/23/2017 2:04 PM EDTBody Mass Index28.19011/23/2017 2:04 PM EDT Plan of Treatment Not on file [address] [place] [address] Care Teams Team MemberRelationshipSpecialtyStart DateEnd Date Risa Reese APRN - HOMAR PCP - GeneralFamily Nurse Practitioner11/23/17
--- OUTSIDE RECORDS SUMMARY | 2024-12-28 07:50 | XMS_ITS | Encounter Summary ---
Author Organization [facility] Address [address] [place] [address] Care Team Providers Care Refrigeration Person Name Role Phone Hunter Sorensen MD Primary Care Provider [phone] Risa Reese MASTER OF CEREMONIES Unavailable [phone] Encounter Details DateTypeDepartmentCare Team (Latest Contact Info)Rauphemgzmp18/10/2025bstract [facility] [address] [place] [address] [place] [address] Rufino Rush DPM [address] [facility] [address] [place] [address] Social History Tobacco UseTypesPacks/DayYears UsedDateSmoking Tobacco: Every DayCigarettes Smokeless Tobacco: NeverAlcohol UseStandard Drinks/WeekCommentsYes0 (1 standard drink = 0.6 oz pure alcohol)caffeine intake:2-3 cups per dayPHQ-2AnswerDate RecordedPatient Health Questionnaire-2 Spbsg216CommentsUnknown Sex and Gender InformationValueDate RecordedSex Assigned at BirthNot on file Legal XjtKmmrjl75/15/2023 7:09 PM EDTGender IdentityNot on fileSexual OrientationNot on filedocumented as of this encounter Plan of Treatment DateTypeDepartmentCare Team (Latest Contact Info)Wbfluljvurh85/29/2025 10:00 AM EDTOffice Visit [facility] [place] [facility] [address] [place] [address] [place] [address] Risa Reese NP [address] [place] [address] [place], [place] [address] 01/06/2025 3:20 PM EDTOffice Visit [facility] [address] [facility] [address] [place] [address] Rufino Rush DPRyan [address] [facility] [address] [place] [address] documented as of this encounter Visit Diagnoses Not on filedocumented in this encounter Additional Health Concerns AssessmentNoted TimePHQ-9 Depression Total Score: 13010/05/2024 9:53 AM EDT documented as of this encounter Care Teams Team MemberRelationshipSpecialtyStart DateEnd Date Hunter Sorensen MD [address] [facility] [address] [place] [address] PCP - GeneralFamily Medicine07/16/22 Risa Reese NP [address] [facility] [address] [place] [address] PCP - [facility]07/09/23documented as of this encounter
--- OUTSIDE RECORDS SUMMARY | 2024-12-28 07:50 | XMS_ITS | Encounter Summary ---
Author Organization [facility] Address [address] [place] [address] Care Team Providers Care General Farm Manager Name Role Phone Hunter Sorensen MD Primary Care Provider [phone] Risa Reese TONGUE CARRIER Unavailable Encounter Details DateTypeDepartmentCare Team (Latest Contact Info)Svstmoropnm78/09/2025Travel Social History Tobacco UseTypesPacks/DayYears UsedDateSmoking Tobacco: Every DayCigarettes Smokeless Tobacco: NeverAlcohol UseStandard Drinks/WeekCommentsYes0 (1 standard drink = 0.6 oz pure alcohol)caffeine intake:2-3 cups per dayPHQ-2AnswerDate RecordedPatient Health Questionnaire-2 Cpoij329CommentsUnknown Sex and Gender InformationValueDate RecordedSex Assigned at BirthNot on file Legal YzoOhnmkp48/15/2023 7:09 PM EDTGender IdentityNot on fileSexual OrientationNot on filedocumented as of this encounter Functional Status * Over the past 2 weeks, how often have you been bothered by any of the following problems?QuestionAnswerDate of AssessmentAuthorLittle interest or pleasure in doing thingsSeveral days12/16/2024 1:58 PM Rafat INGRAMeling down, depressed, or hopelessSeveral 12/16/2024 1:58 PM OPAL INGRAM Patient Health Questionnaire-2 Qaiev318 1:58 PM OPAL INGRAM * If you checked off any problems on this questionnaire so far,QuestionAnswer Date of AssessmentAuthorHow difficult have these problems made it for you to do your work, take care of things at home, or get along with other people? Somewhat xvmthgjmy80/09/2025 1:58 PM EDTOPAL ENGEL documented as of this encounter Plan of Treatment DateTypeDepartmentCare Team (Latest Contact Info)Ocajwibpfcc76/29/2025 10:00 AM EDTOffice Visit [facility] [place] [facility] [address] [place] [address] [place] [address] Risa Reese, TONGUE CARRIER [address] [place] [address] [place] [address] 01/06/2025 3:20 PM EDTOffice Visit [facility] [address] [place] [address] [place] [address] Rufino Rush, DPM [address] [facility] 5 [place] [address] documented as of this encounter Visit Diagnoses Not on filedocumented in this encounter Additional Health Concerns AssessmentNoted TimePQ-9 Depression Total Score: 13010/05/2024 9:53 AM EDT documented as of this encounter Care Teams Team MemberRelationshipSpecialtyStart DateEnd Date Hunter Sorensen MD [address] [place] [address] [place] [address] PCP - GeneralFamily Medicine07/16/22 Risa Reese NP [address] [place] [address] [place] [address] PCP - [facility]07/09/23documented as of this encounter
--- OUTSIDE RECORDS SUMMARY | 2024-12-28 07:50 | XMS_ITS | Encounter Summary ---
Author Organization [facility] Address [address] [place] [address] Care Team Providers Care Ndt Inspector Name Role Phone Hunter Sorensen MD Primary Care Provider [phone] Risa Reese STAVE LOG RIPSAW OPERATOR Unavailable [phone] Encounter Details DateTypeDepartmentCare Team (Latest Contact Info)Ncwwphsumfe28/16/2025amboo flowsheet [facility] [address] [place] [address] [place] [address] Rufino Rush, OMRA [address] [facility] 5 [place] [address] Social History Tobacco UseTypesPacks/DayYears UsedDateSmoking Tobacco: Every DayCigarettes Smokeless Tobacco: NeverAlcohol UseStandard Drinks/WeekCommentsYes0 (1 standard drink = 0.6 oz pure alcohol)caffeine intake:2-3 cups per dayPHQ-2AnswerDate RecordedPatient Health Questionnaire-2 Smcrm588CommentsUnknown Sex and Gender InformationValueDate RecordedSex Assigned at BirthNot on file Legal VeeHzwmys52/15/2023 7:09 PM EDTGender IdentityNot on fileSexual OrientationNot on filedocumented as of this encounter Plan of Treatment DateTypeDepartmentCare Team (Latest Contact Info)Wlnbmcoosca76/29/2025 10:00 AM EDTOffice Visit [facility] [place] [facility] [address] [place] [address] [place] [address] Risa Reese NP [address] [place] [address] [place], [place] [address] 01/06/2025 3:20 PM EDTOffice Visit [facility] [address] [facility] [address] [place] [address] Rufino Rush DPRyan [address] [facility] 5 [place] [address] documented as of this encounter Visit Diagnoses Not on filedocumented in this encounter Additional Health Concerns AssessmentNoted TimePHQ-9 Depression Total Score: 13010/05/2024 9:53 AM EDT documented as of this encounter Care Teams Team MemberRelationshipSpecialtyStart DateEnd Date Hunter Sorensen MD [address] [facility] 110 [place] [address] PCP - GeneralFamily Medicine07/16/22 Risa Reese NP [address] [facility] [address] [place] [address] PCP - [facility]07/09/23documented as of this encounter
--- OUTSIDE RECORDS SUMMARY | 2024-12-28 07:50 | XMS_ITS | Encounter Summary ---
Author Organization [facility] Address [address] [place] [address] Care Team Providers Care Flocculator Operator Name Role Phone Hunter Sorensen MD Primary Care Provider [phone] Risa Reese LIVESTOCK TRUCKER Unavailable [phone] Reason for Referral * Medications - DeniedSpecialtyDiagnoses / ProceduresReferred By ContactReferred To Contact Diagnoses BMI 37.0-37.9, adult BRYAN (obstructive sleep apnea) Risa Reese NP [address] [facility] [address] [place] [address] Phone: tel: fax: Referral IDStatusReasonStart DateExpiration DateVisits RequestedVisits [id number] Reason for Visit * ReasonCommentsMed Change Request Encounter Details DateTypeDepartmentCare Team (Latest Contact Info)Vgtrfwgquzf14/14/2025Refill [facility] [place] [facility] [address] [facility] 110 [place] [address] Risa Reese NP [address] [place] [address] [place] [address] BMI 37.0-37.9, adult; BRYAN (obstructive sleep apnea) Social History Tobacco UseTypesPacks/DayYears UsedDateSmoking Tobacco: Every DayCigarettes Smokeless Tobacco: NeverAlcohol UseStandard Drinks/WeekCommentsYes0 (1 standard drink = 0.6 oz pure alcohol)caffeine intake:2-3 cups per dayPHQ-2AnswerDate RecordedPatient Health Questionnaire-2 Xiikm386CommentsUnknown Sex and Gender InformationValueDate RecordedSex Assigned at BirthNot on file Legal YhlCkvuud83/15/2023 7:09 PM EDTGender IdentityNot on fileSexual OrientationNot on filedocumented as of this encounter Plan of Treatment DateTypeDepartmentCare Team (Latest Contact Info)Klqhdhgowma70/29/2025 10:00 AM EDTOffice Visit [facility] [place] [facility] [address] [place] [address] [place] [address] Risa Reese, LIVESTOCK TRUCKER [address] [place] [address] [place] [address] 01/06/2025 3:20 PM EDTOffice Visit [facility] [address] [place] [address] [place] [address] Rufino Rush DPM [address] [facility] 5 [place] [address] documented as of this encounter Visit Diagnoses Diagnosis BMI 37.0-37.9, adult BRYAN (obstructive sleep apnea) Obstructive sleep apnea (adult) (pediatric) documented in this encounter Additional Health Concerns AssessmentNoted TimePHQ-9 Depression Total Score: 13010/05/2024 9:53 AM EDT documented as of this encounter Care Teams Team MemberRelationshipSpecialtyStart DateEnd Date Hunter Sorensen MD [address] [place] [address] [place] [address] PCP - GeneralFamily Medicine07/16/22 Risa Reese, LIVESTOCK TRUCKER [address] [place] [address] [place] [address] PCP - ACO Re[facility]07/09/23documented as of this encounter
--- OUTSIDE RECORDS SUMMARY | 2024-12-28 07:50 | XMS_ITS | Clinical Summary ---
Author Organization Ordr[employer] tem Address [id number] [address] [place] [address] Care Team Providers Care Weld Fitter Name Role Phone Hunter Sorensen MD Primary Care Provider [phone] Allergies No known active allergies Medications MedicationSigDispense QuantityRefillsLast FilledStart DateEnd DateStatus hydroCHLOROthiazide (HYDRODIURIL) 12.5 mg tablet Take 12.5 mg by mouth daily.Active oxybutynin (DITROPAN) 5 mg tablet Take 5 mg by mouth 2 (two) times a day. Active omeprazole (PriLOSEC) 20 mg capsule Take 20 mg by mouth daily.Active lisinopril (PRINIVIL,ZESTRIL) 5 mg tablet Take 5 mg by mouth daily.Active DULoxetine (CYMBALTA) 30 mg capsule Take 1 capsule by mouth 2 (two) times a day.08/24/2019Active bdhjbubmybd-nlkknqcqh-haabnjve (TRELEGY ELLIPTA) 100-62.5-25 mcg blister with device Inhale 1 puff daily. 60 each ctive TRELEGY ELLIPTA 100-62.5-25 mcg blister with device INHALE 1 PUFF ONCE DAILY 60 each ctive albuterol (PROVENTIL HFA;VENTOLIN HFA) 90 mcg/actuation inhaler Indications:Chronic obstructive pulmonary disease, unspecified COPD type ([facility])Inhale 2 puffs every 4 (four) hours as needed for wheezing. 18 g 11010/11/2021ctive busPIRone (BUSPAR) 5 mg tablet Take 1 tablet (5 mg total) by mouth 3 (three) times a day.Active Active Problems ProblemNoted DateDiagnosed DateIron deficiency amtyga651Abnormal nuclear stress test12/05/2017Abnormal cardiovascular stress test12/05/2017 Overview (12/05/2017): Added automatically from request for surgery [id number] Chest pain Immunizations ImmunizationAdministration DatesNext DueInfluenza, Injectable, quadrivalent (PF) 02/07/2020 Family History Medical HistoryRelationNameCommentsAlzheimer's diseaseFatherSnoringFatherStroke FatherBreast cancerMaternal AuntCancerMotherOsteoarthritisMotherRelationName StatusCommentsFatherDeceasedMaternal AuntMotherAlive Social History Tobacco UseTypesPacks/DayYears UsedDateSmoking Tobacco: Every DayCigarettes0.345 Smokeless Tobacco: NeverAlcohol UseStandard Drinks/WeekCommentsYes0 (1 standard drink = 0.6 oz pure alcohol)ChildcareAnswerDate RecordedChildcareUnknown 08/19/2018EmploymentAnswerDate XenrubquDlmoxqmzpmJvmnbmj83/12/2019Hunger ScreeningAnswerDate RecordedWithin the past 12 months we worried whether our food would run out before we got money to buy more.Never True11/25/2022Within the past 12 months the food we bought just didn't last and we didn't have money to get more.Never True3Purpose - LifeAnswerDate RecordedPurpose and direction in prhvQflpkyj03/13/2021CommentsNoSex and Gender Information ValueDate RecordedSex Assigned at BirthNot on fileLegal HbrWrlbpd23/06/2015 11:40 AM EDTGender IdentityNot on fileSexual OrientationNot on file Last Filed Vital Signs Vital SignReadingTime TakenCommentsBlood Vdjokvfc468/70011/25/2022 10:15 AM EDT Tztie2951 9:29 AM QKRKqdpesufcuv88.7 ??C (98 ??F)11/25/2022 9:29 AM EDT Respiratory Jgwf579311/25/2022 9:29 AM EDTOxygen Xiketqvuyl28%11/25/2022 10:15 AM EDTInhaled Oxygen Concentration--Ikmdxz55.8 kg (198 lb)11/25/2022 9:29 AM EDT Apwimc186.2 cm (5' 7 )11/25/2022 9:29 AM EDTBody Mass Index31.01011/25/2022 9:29 AM EDT Plan of Treatment Health MaintenanceDue DateLast DoneCommentsDepression Wqhnawbrh69/13/1973Tobacco Kpnqaoosb93/13/1973DTaP,Tdap and Td Vaccines (1 - Tdap)08/21/1979Zoster (Shingles) Vaccine (1 of 2)2010dult BMI Rijtsryus04 COVID-19 Vaccine (2 - season)/Influenza Vaccine /, 01/03/2021, 02/07/2020 Medical Devices Not on file Insurance Care Teams Team MemberRelationshipSpecialtyStart DateEnd Date Hunter [place] [address] [place] [address] [facility]07/30/16
--- OUTSIDE RECORDS SUMMARY | 2024-12-28 07:50 | XMS_ITS | Encounter Summary ---
Author Organization [facility] Address [address] [place] [address] Care Team Providers Care Help Desk Representative Name Role Phone Hunter Sorensen MD Primary Care Provider [phone] Risa Reese MARKETING TECHNOLOGIST Unavailable [phone] Encounter Details DateTypeDepartmentCare Team (Latest Contact Info)Zfcdtrcgswm01/14/2025bstract [facility] [address] [place] [address] [place] [address] Rufino Rush DPM [address] [facility] 5 [place] [address] Social History Tobacco UseTypesPacks/DayYears UsedDateSmoking Tobacco: Every DayCigarettes Smokeless Tobacco: NeverAlcohol UseStandard Drinks/WeekCommentsYes0 (1 standard drink = 0.6 oz pure alcohol)caffeine intake:2-3 cups per dayPHQ-2AnswerDate RecordedPatient Health Questionnaire-2 Vvhwa147CommentsUnknown Sex and Gender InformationValueDate RecordedSex Assigned at BirthNot on file Legal BktXubkpo62/15/2023 7:09 PM EDTGender IdentityNot on fileSexual OrientationNot on filedocumented as of this encounter Plan of Treatment DateTypeDepartmentCare Team (Latest Contact Info)Hepwfrbebei96/29/2025 10:00 AM EDTOffice Visit [facility] [place] [facility] [address] [place] [address] [place] [address] Risa Reese NP [address] [place] [address] [place], [place] [address] 01/06/2025 3:20 PM EDTOffice Visit [facility] [address] [facility] [address] [place] [address] Rufino Rush DPRyan [address] [facility] 5 [place] [address] documented as of this encounter Visit Diagnoses Not on filedocumented in this encounter Additional Health Concerns AssessmentNoted TimePHQ-9 Depression Total Score: 13010/05/2024 9:53 AM EDT documented as of this encounter Care Teams Team MemberRelationshipSpecialtyStart DateEnd Date Hunter Sorensen MD [address] [facility] [address] [place] [address] PCP - GeneralFamily Medicine07/16/22 Risa Reese NP [address] [facility] [address] [place] [address] PCP - ACO [facility]07/09/23documented as of this encounter
--- OUTSIDE RECORDS SUMMARY | 2024-12-28 07:50 | XMS_ITS | Encounter Summary ---
Author Organization [facility] Address [address] [facility] [place] [address] Care Team Providers Care Pipe Smoking Machine Operator Name Role Phone Hunter Sorensen MD Primary Care Provider [phone] Risa Reese STEAM BONE PRESS TENDER Unavailable [phone] Encounter Details DateTypeDepartmentCare Team (Latest Contact Info)Wedtkxehwjt78/10/2025Refill [facility] [place] [facility] [address] [place] [address] [place] [address] Marianna Vincent PA [address] [place] [address] [place] [address] Fibromyalgia Social History Tobacco UseTypesPacks/DayYears UsedDateSmoking Tobacco: Every DayCigarettes Smokeless Tobacco: NeverAlcohol UseStandard Drinks/WeekCommentsYes0 (1 standard drink = 0.6 oz pure alcohol)caffeine intake:2-3 cups per dayPHQ-2AnswerDate RecordedPatient Health Questionnaire-2 Rdmfb358CommentsUnknown Sex and Gender InformationValueDate RecordedSex Assigned at BirthNot on file Legal JskEtnxip23/15/2023 7:09 PM EDTGender IdentityNot on fileSexual OrientationNot on filedocumented as of this encounter Miscellaneous Notes * Telephone Encounter - DAREK Shen - 12/17/2024 7:57 AM EDT Patient had exact same prescription in March for the Tramadol, and it had been over 6 months since she had an opioid filled at that time also. It was filled by Arnaldo. Called and left detailed message with pharmacy for them to proceed with filling Rx as was sent by Risa, as they have done it previously in the exact same situation earlier this year. * Telephone Encounter - Amina Davidson MA - 12/17/2024 6:05 AM EDT Hi, this is [facility] pharmacy calling in [place] [phone] calling on patient Rosaline Childs data both [phone], we received a train with all prescription for her. She has not filled this since March of this year. So it is been over 6 months since she is gotten a prescription for an opioid. Sowe are only able to do 1 every 8 h as needed of the train at all to get to the 30 MME required for t he initial prescription. So if you could either call to give a verbal or resend the prescription once again, [facility] in [place] [phone]. Thank you. documented in this encounter Plan of Treatment DateTypeDepartmentCare Team (Latest Contact Info)Islpvuegjhf18/29/2025 10:00 AM EDTOffice Visit [facility] [place] [facility] [address] [place] [address] [place] [address] Risa Reese, STEAM BONE PRESS TENDER [address] [place] [address] [place] [address] 01/06/2025 3:20 PM EDTOffice Visit [facility] [address] [place] [address] [place] [address] Rufino Rush DPM 3[address] [facility] 5 [place] [address] documented as of this encounter Visit Diagnoses Diagnosis Fibromyalgia Unspecified myalgia and myositis documented in this encounter Additional Health Concerns AssessmentNoted TimePHQ-9 Depression Total Score: 13010/05/2024 9:53 AM EDT documented as of this encounter Care Teams Team MemberRelationshipSpecialtyStart DateEnd Date Hunter Sorensen MD [address] [facility] 110 [place] [address] [facility] - [facility] Risa Reese NP [address] [facility] 110 [place] [address] PCP - [facility]07/09/23documented as of this encounter
--- NOTE | 2024-12-28 08:00 | CA_ITS ---
[facility] Test Date: 2024-12-28 Pat Name: RONN CORONEL Department: Room: - Gender: Female Field Checker: Henna Vale : 1960 Requested By: [place] Order Number: [id number] Reading MD: JAYCE BUSBY M.D. Interpretive Statements Summary of the findings: Right leg: KRIS= 1.26; TBI= 0.59. Doppler waveforms demonstrate multiphasic flow at the posterior tibial and dorsalis pedis arteries. Left leg: KRIS= 1.33; TBI= 0.54. Doppler waveforms demonstrate multiphasic flow at the posterior tibial and dorsalis pedis arteries. Segmental pressures: Segmental pressures suggest possible left femoropopliteal disease. Pulse volume recordings: PVRs at the high thigh, below knee, and ankle levels show normal waveforms. Conclusion: Right and left ankle-brachial indices are suggestive of normal overall arterial flow at rest. Toe-brachial indices are suggestive of PAD. Segmental pressures suggest possible left femoropopliteal disease. Pulse volume recordings indicate good overall resting arterial flow. Waveform analysis suggests normal bilateral arterial flow. The study shows evidence of PAD (possible left femoropopliteal disease) with normal overall arterial flow at rest. Electronically Signed On 12-28-2024 20:07:23 EDT by JAYCE BUSBY M.D.
== END 2024-12-28 07:44 | disposition home or self-care (01) ==
LOC: CARD 07:47
PROVIDERS: PCP Family Medicine
DX: I73.9 Peripheral vascular disease, unspecified (principal)
CPT/HCPCS: 93923

== ENCOUNTER 2024-12-31 13:36 | Outpatient (OUT) | payer MEDICARE, SELFPAY ==
--- OUTSIDE RECORDS SUMMARY | 2024-12-16 14:20 | XMS_ITS | Encounter Summary ---
Author Organization [facility] Address [address] [place] [address] Care Team Providers Care [employer] Professionals Name Role Phone Hunter Sorensen MD Primary Care Provider [phone] Risa Reese ACID CORRECTION HAND Unavailable [phone] Reason for Referral * Imaging (Urgent) - ClosedSpecialtyDiagnoses / ProceduresReferred By Contact Referred To ContactCardiology Diagnoses PVD (peripheral vascular disease) Procedures Vascular US lower extremity arterial Doppler complete Rufino Rush DPM [address] [address] Phone: tel: fax: [facility] CardioPulmonary [address] [facility], [address] Referral IDStatusReasonStart DateExpiration DateVisits RequestedVisits [id number] Perform Procedure / Reason for Visit * ReasonCommentsFoot UlcerHeel wound Encounter Details DateTypeDepartmentCare Team (Latest Contact Info)Tlgwqzvdjzo15/09/2025 2:20 PM EDTOffice Visit [facility] 112 [facility] 120 [place] [phone] Rufino Rush DPM [address] [address] Foot ulcer, right, with fat layer exposed (HCC) (Primary Dx); Cellulitis of right foot; Diabetes mellitus due to underlying condition with diabetic polyneuropathy, unspecified whether rodent exterminator insulin use (HCC); PVD (peripheral vascular disease) Social History Tobacco UseTypesPacks/DayYears UsedDateSmoking Tobacco: Every DayCigarettes Smokeless Tobacco: Never Tobacco Cessation:Ready to Q uit: Not Asked; Counseling Given: Yes Alcohol UseStandard Drinks/WeekCommentsYes0 (1 standard drink = 0.6 oz pure alcohol)caffeine intake:2-3 cups per dayPHQ-2AnswerDate RecordedPatient Health Questionnaire-2 Qjzpa387CommentsUnknownSex and Gender InformationValueDate RecordedSex Assigned at BirthNot on fileLegal SexFemale 05/22/2022 7:09 PM EDTGender IdentityNot on fileSexual OrientationNot on file documented as of this encounter Last Filed Vital Signs Vital SignReadingTime TakenCommentsBlood Pressure--Pulse--Temperature-- Respiratory Iqqk5221 2:40 PM EDTOxygen Saturation--Inhaled Oxygen Concentration--Ejvpxx290 kg (237 lb)12/16/2024 2:40 PM RNHYsbzdt440.2 cm (5' 7 ) 12/16/2024 2:40 PM EDTBody Mass Index37.121 2:40 PM EDTdocumented in this encounter Functional Status * Over the past 2 weeks, how often have you been bothered by any of the following problems?QuestionAnswerDate of AssessmentAuthorLittle interest or pleasure in doing thingsSeveral days12/16/2024 1:58 PM Rafat INGRAMeling down, depressed, or hopelessSeveral days12/16/2024 1:58 PM OPAL INGRAM Patient Health Questionnaire-2 Uyrkl527 1:58 PM OPAL INGRAM * If you checked off any problems on this questionnaire so far,QuestionAnswer Date of AssessmentAuthorHow difficult have these problems made it for you to do your work, take care of things at home, or get along with other people? Somewhat oglxnimmq97/09/2025 1:58 PM OPAL INGRAM documented as of [...] g, Rfl: 3 Blood Glucose Monitoring Suppl ([employer] True Met Air Gluc Meter) w/Device kit, [...] before bedtime., Disp: 180 capsule, Rfl: 3 Tawnfgurfze-Vvsfknkqm-Tytqew (Trelegy Ellipta) 100-62.5-25 MCG/ACT aerosol powder , [...] Insecurity: No Food Insecurity (11/25/2022) Received from [facility] Hunger Screening Within the past [...] cool tibia to toes b/l NEURO: 5.07 [place] Melody monofilament test intact to digits and forefoot bilaterally 125Hz tuning fork diminished to 1st MPJ bilaterally ORTHO: +5/5 DF/PF/IN/EV right, +5/5 DF/PF/IN/EV left. 20 degrees inversion and 10 degrees eversion STJ b/l. Ankle ROM less than 10 degrees b/l. Positive pain on palpation to right heel ulceration XRAY: US: ASSESSMENT 1. Foot ulcer, right, with fat layer exposed ([facility]) 2. Cellulitis of right foot 3. Diabetes mellitus due to underlying condition with diabetic polyneuropathy, unspecified whether rodent exterminator insulin use ([facility]) 4. PVD (peripheral vascular disease) PLAN Patient be scheduled for KRIS PVRs at [facility] Patient be placed on oral antibiotic Patient [...] Plan of Treatment DateTypeDepartmentCare Team (Latest Contact Info)Witbfozdhcv38/29/2025 10:00 AM EDTOffice Visit [facility] [address] [facility] 110 [place] [address] Risa Reese, JESSICA [address] [facility] 110 [place] [address] 01/06/2025 3:20 PM EDTOffice Visit [facility] [address] [facility] 120 [place] [phone] Rufino Rush DPM 3[address] [facility] 5 [place] [address] NameTypePriorityAssociated DiagnosesOrder ScheduleVascular US lower extremity arterial Doppler completeVascular UltrasoundHigh Priority PVD (peripheral vascular disease) Ordered: 12/17/2024documented as of this encounter Visit Diagnoses Diagnosis Foot ulcer, right, with fat layer exposed (HCC)- Primary Cellulitis of right foot Diabetes mellitus due to underlying condition with diabetic polyneuropathy, unspecified whether rodent exterminator insulin use (HCC) PVD (peripheral vascular disease) Unspecified peripheral vascular disease Osteomyelitis of ankle or foot, acute, right (HCC)- Primary PVD (peripheral vascular disease) Unspecified peripheral vascular disease Cellulitis of right foot Diabetes mellitus due to underlying condition with diabetic polyneuropathy, unspecified whether senior care insulin use (HCC) Foot ulcer, right, with fat layer exposed (HCC) documented in this encounter Additional Health Concerns AssessmentNoted TimePHQ-9 Depression Total Score: 13010/05/2024 9:53 AM EDT documented as of this encounter Care Teams Team MemberRelationshipSpecialtyStart DateEnd Date Hunter Sorensen MD [address] [facility] 110 [place] [address] PCP - GeneralFamily Medicine07/16/22 Risa Reese NP [address] [facility] 110 [place] [address] PCP - ACO [facility]07/09/23documented as of this encounter
--- OUTSIDE RECORDS SUMMARY | 2024-12-23 10:30 | XMS_ITS | Encounter Summary ---
Author Organization [facility] Address [address] [place] [address] Care Team Providers Care Paleontology Teacher Name Role Phone Hunter Sorensen MD Primary Care Provider [phone] Risa Reese CERTIFIED SCRUB TECH Unavailable [phone] Reason for Referral * Imaging (Routine) - Pending ReviewSpecialtyDiagnoses / ProceduresReferred By ContactReferred To ContactDiagnostic Radiology Diagnoses Osteomyelitis of ankle or foot, acute, right (HCC) Procedures MR foot right wo IV contrast Rufino Rush DPM [address] [address] Phone: tel: fax: [facility] Schedule fax: Referral IDStatusReasonStart DateExpiration DateVisits RequestedVisits [id number]/ Reason for Visit * ReasonCommentsFollow-upRT HEEL ULCER Encounter Details DateTypeDepartmentCare Team (Latest Contact Info)Uipjjthxhqo99/16/2025 10:30 AM EDTOffice Visit [facility] 112 [facility] 120 [place] [phone] Rufino Rush DPM [address] [address] Osteomyelitis of ankle or foot, acute, right (HCC) (Primary Dx); PVD (peripheral vascular disease); Cellulitis of right foot; Diabetes mellitus due to underlying condition with diabetic polyneuropathy, unspecified whether skilled nursing insulin use (HCC); Foot ulcer, right, with fat layer exposed (HCC) Social History Tobacco UseTypesPacks/DayYears UsedDateSmoking Tobacco: Every DayCigarettes Smokeless Tobacco: Never Tobacco Cessation:Ready to Q uit: Not Asked; Counseling Given: Yes Alcohol UseStandard Drinks/WeekCommentsYes0 (1 standard drink = 0.6 oz pure alcohol)caffeine intake:2-3 cups per dayPHQ-2AnswerDate RecordedPatient Health Questionnaire-2 Nzcfh386CommentsUnknownSex and Gender InformationValueDate RecordedSex Assigned at BirthNot on fileLegal SexFemale 05/22/2022 7:09 PM EDTGender IdentityNot on fileSexual OrientationNot on file documented as of this encounter Last Filed Vital Signs Vital SignReadingTime TakenCommentsBlood Pressure--Pulse--Temperature-- Respiratory Yzjy8001 10:28 AM EDTOxygen Saturation--Inhaled Oxygen Concentration--Gqwrzr304 kg (237 lb)12/23/2024 10:28 AM ZKWQzyjxo370.2 cm (5' 7 )12/23/2024 10:28 AM EDTBody [...] of PVD and awaits rayo/pvr testing at [facility]. Allergies: No Known Allergies Past Medical History: [...] g, Rfl: 3 Blood Glucose Monitoring Suppl (Vinted True Met Air Gluc Meter) w/Device kit, [...] before bedtime., Disp: 180 capsule, Rfl: 3 Vumeulltlmw-Jqqhevdko-Yusbbf (Trelegy Ellipta) 100-62.5-25 MCG/ACT aerosol powder , [...] Insecurity: No Food Insecurity (11/25/2022) Received from [facility] Hunger Screening Within the past 12 [...] cool tibia to toes b/l NEURO: 5.07 [place] Melody monofilament test intact to digits and [...] underlying condition with diabetic polyneuropathy, unspecified whether skilled nursing insulin use (HCC) 4. Foot ulcer, right, with fat layer exposed (HCC) 5. Osteomyelitis of ankle or foot, acute, right (HCC) PLAN Patient be scheduled for RAYO PVRs at [facility] and will schedule MRI Continue with oral antibiotic Reviewed xrays today with patient Sharp debridement with 15 blade of subcutaneous ulceration to right foot with active bleeding notedand removal and excision of fibrotic and necrotic tissue to wound and DSD applied with neosporin. Pt to continue with betadine daily. Order MRI [facility] Rufino Rush DPM documented in this encounter Plan of Treatment DateTypeDepartmentCare Team (Latest Contact Info)Kerxkistzhf65/29/2025 10:00 AM EDTOffice Visit [facility] [address] [facility] 110 [place] [address] Risa Reese NP [address] [facility] 110 [place] [address] 01/06/2025 3:20 PM EDTOffice Visit [facility] [address] [facility] 120 [place] [address] Rufino Rush DPM 3006 [facility] 5 [place] [address] NameTypePriorityAssociated DiagnosesOrder ScheduleMR foot right wo IV contrast ImagingRoutine Osteomyelitis of ankle or foot, acute, right (HCC) Ordered: 12/23/2024documented as of this encounter Procedures Procedure NamePriorityDate/TimeAssociated DiagnosisCommentsXR FOOT 3+ VIEWS CHXUAOpnybkn76/16/2025 10:44 AM EDT Foot ulcer, right, with [...] underlying condition with diabetic polyneuropathy, unspecified whether skilled nursing insulin use (HCC) Foot ulcer, right, with fat layer exposed (HCC) Osteomyelitis of ankle or foot, acute, right (HCC)- Primary PVD (peripheral vascular disease) Unspecified peripheral vascular disease Cellulitis of right foot Diabetes mellitus due to underlying condition with diabetic polyneuropathy, unspecified whether skilled nursing insulin use (HCC) Foot ulcer, right, with fat layer exposed (HCC) documented in this encounter Additional Health Concerns AssessmentNoted TimePHQ-9 Depression Total Score: 9:53 AM EDT documented as of this encounter Care Teams Team MemberRelationshipSpecialtyStart DateEnd Date Hunter Sorensen MD [address] [facility] 110 [place] [address] PCP - GeneralFatxly Medicine07/16/22 Risa Reese NP [address] [facility] 110 [place] [address] PCP - ACO [facility]07/09/23documented as of this encounter
--- OUTSIDE RECORDS SUMMARY | 2024-12-23 10:45 | XMS_ITS | Encounter Summary ---
Author Organization [facility] Address [address] [place] [address] Care Team Providers Care Health Education Director Name Role Phone Hunter Sorensen MD Primary Care Provider [phone] Risa Reese ENGRAVING OPERATOR Unavailable [phone] Encounter Details DateTypeDepartmentCare Team (Latest Contact Info)Cyoqckjgzbc98/16/2025 10:45 AM EDTAncillary Procedure [facility] [address] [place] [address] [place] [address] Social History Tobacco UseTypesPacks/DayYears UsedDateSmoking Tobacco: Every DayCigarettes Smokeless Tobacco: NeverAlcohol UseStandard Drinks/WeekCommentsYes0 (1 standard drink = 0.6 oz pure alcohol)caffeine intake:2-3 cups per dayPHQ-2AnswerDate RecordedPatient Health Questionnaire-2 Bwfmp961CommentsUnknown Sex and Gender InformationValueDate RecordedSex Assigned at BirthNot on file Legal MfkUiyxkh88/15/2023 7:09 PM EDTGender IdentityNot on fileSexual OrientationNot on filedocumented as of this encounter Plan of Treatment DateTypeDepartmentCare Team (Latest Contact Info)Wkzpadxmbhn18/29/2025 10:00 AM EDTOffice Visit [facility] [address] [place] [address] [place] [address] Risa Reese NP [address] [place] 110 [place] [address] 01/06/2025 3:20 PM EDTOffice Visit [facility] [address] [place] [address] [place] [address] Rufino Rush, DPM 3006 [facility] 5 [place] [address] documented as of this encounter Procedures Procedure NamePriorityDate/TimeAssociated DiagnosisCommentsXR FOOT 3+ VIEWS GSLJQErvkulc39/16/2025 10:44 AM EDT Foot ulcer, right, with [...] MemberRelationshipSpecialtyStart DateEnd Date Hunter Sorensen MD [address] [facility] 110 [place] [address] PCP - GeneralFamily Medicine07/16/22 Risa Reese NP [address] [facility] 110 [place] [address] PCP - ACO [facility]07/09/23documented as of this encounter
--- OUTSIDE RECORDS SUMMARY | 2024-12-31 13:40 | XMS_ITS | Encounter Summary ---
Author Organization [facility] Address [address] [place] [address] Care Team Providers Care Senior Mechanical Development Engineer Name Role Phone Hunter Maria MD Primary Care Provider [phone] Risa Reese REMELT FURNACE EXPEDITER Unavailable [phone] Encounter Details DateTypeDepartmentCare Team (Latest Contact Info)Jxstpjhmwqz30/21/2025linisync Result Encounter [facility] External Department Unsolicited Provider, Generic External Data Social History Tobacco UseTypesPacks/DayYears UsedDateSmoking Tobacco: Every DayCigarettes Smokeless Tobacco: NeverAlcohol UseStandard Drinks/WeekCommentsYes0 (1 standard drink = 0.6 oz pure alcohol)caffeine intake:2-3 cups per dayPHQ-2AnswerDate RecordedPatient Health Questionnaire-2 Itrbe898CommentsUnknown Sex and Gender InformationValueDate RecordedSex Assigned at BirthNot on file Legal AeeHqsbvw39/15/2023 7:09 PM EDTGender IdentityNot on fileSexual OrientationNot on filedocumented as of this encounter Plan of Treatment DateTypeDepartmentCare Team (Latest Contact Info)Kcnwvlvkode29/29/2025 10:00 AM EDTOffice Visit [facility] [place] [facility] [address] [place] [address] [place] [address] Risa Reese NP [address] [place] [address] [place], [place] [address] 01/06/2025 3:20 PM EDTOffice Visit [facility] [address] [place] [address] [place] [address] Rufino Rush, DPRyan [address] [address] documented as of this encounter Procedures Procedure NamePriorityDate/TimeAssociated DiagnosisCommentsSEGMENTAL BLOOD SVWFQFXX53/21/2025 9:16 AM EDT documented in this encounter Results * SEGMENTAL BLOOD PRESSURE (12/28/2024 9:16 AM EDT)Anatomical RegionLaterality ModalityRadiographic ImagingSpecimen (Source)Anatomical Location / Laterality Collection Method / VolumeCollection TimeReceived Time12/28/2024 9:16 AM EDT Narrative 12/28/2024 8:07 PM EDT [facility] ?[address] ? [place] [address] ? Cardiology Report ? Signed ? Patient: CORONELROSALINE H ?MR#: [id number] ?? : 1960 ?Acct:[id number] ?? Age/Sex: 64 / F ?ADM Date: 12/28/24 ?? Loc: CARD ? Attending Dr: RUFINO RUSH ? Ordering Physician: RUFINO RUSH ?? Date of Service: 12/28/24 ?? Procedure(s): CA segmental UE or LE DANNY ?? Accession Number(s): [id number] ? cc: HUNTER MARIA ; RUFINO RUSH ?[facility] ? Test Date: ?2024-12-28 ?? Pat Name: ? ROSALINE CORONEL ?Department: ? Room: ? - ?? Gender: ? Female ? Manager Trainee: ?? Henna Vale ?? : ?1960 ? Requested By: RUFINO RUSH ?? Order Number: [id number] ?Reading MD: ?? JAYCE ??Vivi BUSBY ? Interpretive Statements ?? Summary of the findings: ?? Right leg: KRIS= 1.26; TBI= 0.59. Doppler waveforms demonstrate multiphasic ?? flow at the posterior tibial and dorsalis pedis arteries. ?? Left leg: KRIS= 1.33; TBI= 0.54. Doppler waveforms demonstrate multiphasic ?? flow at the posterior tibial and dorsalis pedis arteries. ?? Segmental pressures: Segmental pressures suggest possible left ?? femoropopliteal disease. ?? Pulse volume recordings: PVRs at the high thigh, below knee, and ankle levels ?? show normal waveforms. ?? Conclusion: ?? Right and left ankle-brachial indices are suggestive of normal overall ?? arterial flow at rest. Toe-brachial indices are suggestive of PAD. Segmental ?? pressures suggest possible left femoropopliteal disease. Pulse volume ?? recordings indicate good overall resting arterial flow. Waveform analysis ?? suggests normal bilateral arterial flow. ? The study shows evidence of PAD (possible left femoropopliteal disease) with ?? normal overall arterial flow at rest. ? Electronically Signed On 12-28-2024 20:07:23 EDT by JAYCE ??Vivi BUSBY ? Dictated By: ?JAYCE BUSBY ? Signed By: ?12/28/24 2007 ?12/28/24 2007 ? DD/ 0916 ? TD/TT: ? Paperhanger Pipe: Procedure Note Radiology, Radiologist, MD - 12/28/2024 [place] [address] Cardiology Report Signed Patient: ROSALINE CORONEL R#: [id number] : 1Acct:[id number] Age/Sex: 64 / FADM Date: 12/28/24 Loc: CARD Attending Dr: RUFINO RUSH Ordering Physician: RUFINO RUSH Date of Service: 12/28/24 Procedure(s): CA segmental UE or LE DANNY Accession Number(s): [id number] cc: HUNTER MARIA ; RUFINO RUSH [facility] Test Date: 2024-12-28 Pat Name: ROSALINE CORONEL Department: Room: - Gender: Female Manager Trainee: Henna Vale : 1960 Requested By: RUFINO RUSH Order Number: [id number] Reading MD: JAYCE BUSBY M.D. Interpretive Statements Summary of the findings: Right leg: KRIS= 1.26; TBI= 0.59. Doppler waveforms demonstrate multiphasic flow at the posterior tibial and dorsalis pedis arteries. Left leg: KRIS= 1.33; TBI= 0.54. Doppler waveforms demonstrate multiphasic flow at the posterior tibial and dorsalis pedis arteries. Segmental pressures: Segmental pressures suggest possible left femoropopliteal disease. Pulse volume recordings: PVRs at the high thigh, below knee, and anklelevels show normal waveforms. Conclusion: Right and left ankle-brachial indices are suggestive of normal overall arterial flow at rest. Toe-brachial indices are suggestive of PAD.Segmental pressures suggest possible left femoropopliteal disease. Pulse volume recordings indicate good overall resting arterial flow. Waveform analysis suggests normal bilateral arterial flow. The study shows evidence of PAD (possible left femoropopliteal disease)with normal overall arterial flow at rest. Electronically Signed On 12-28-2024 20:07:23 EDT by JAYCE BUSBY M.D. Dictated By: JAYCE BUSBY Signed By:12/28/24200612/28/242006 DD/ 5 TD/TT: Paperhanger Pipe: Authorizing ProviderResult TypeResult StatusGeneric External Data ProviderIMG XR PROCEDURESFinal Result documented in this encounter Visit Diagnoses Not on filedocumented in this encounter Additional Health Concerns AssessmentNoted TimePHQ-9 Depression Total Score: 13010/05/2024 9:53 AM EDT documented as of this encounter Care Teams Team MemberRelationshipSpecialtyStart DateEnd Date Hunter Maria MD [address] [facility] 110 [place] [address] PCP - GeneralFamily Medicine07/16/22 Risa Reese NP [address] [facility] 110 [place] [address] [facility] 07/09/23documented as of this encounter
--- OUTSIDE RECORDS SUMMARY | 2024-12-31 13:40 | XMS_ITS | Clinical Summary ---
Author Organization [employer] tem Address [id number] [address] [place] [address] Care Team Providers Care Caster Helper Name Role Phone Hunter Sorensen MD Primary Care Provider [phone] Allergies No known active allergies Medications MedicationSigDispense [...] by mouth 2 (two) times a day.08/24/2019Active tqypynyzixn-fwqlmzaol-cltlbfxe (TRELEGY ELLIPTA) 100-62.5-25 mcg blister with device Inhale 1 puff daily. 60 each ctive TRELEGY ELLIPTA 100-62.5-25 mcg blister with device INHALE 1 PUFF ONCE DAILY 60 each ctive albuterol (PROVENTIL HFA;VENTOLIN HFA) 90 mcg/actuation inhaler Indications:Chronic obstructive pulmonary disease, unspecified COPD type ([facility])Inhale 2 puffs every 4 (four) hours as needed for wheezing. 18 g 11010/11/2021ctive busPIRone (BUSPAR) 5 mg tablet Take 1 tablet (5 mg total) by mouth 3 (three) times a day.Active Active Problems ProblemNoted DateDiagnosed DateIron deficiency nzlkzu001Abnormal nuclear stress test12/05/2017Abnormal cardiovascular stress test12/05/2017 Overview (12/05/2017): Added automatically from request for surgery [id number] Chest pain Immunizations ImmunizationAdministration DatesNext DueInfluenza, Injectable, quadrivalent (PF) 02/07/2020 Family History Medical HistoryRelationNameCommentsAlzheimer's diseaseFatherSnoringFatherStroke FatherBreast cancerMaternal AuntCancerMotherOsteoarthritisMotherRelationName StatusCommentsFatherDeceasedMaternal AuntMotherAlive Social History Tobacco UseTypesPacks/DayYears UsedDateSmoking Tobacco: Every DayCigarettes0.345 Smokeless Tobacco: NeverAlcohol UseStandard Drinks/WeekCommentsYes0 (1 standard drink = 0.6 oz pure alcohol)ChildcareAnswerDate RecordedChildcareUnknown 08/19/2018EmploymentAnswerDate IxgaktzgXimeeqqjvbXtlczsv80/12/2019Hunger ScreeningAnswerDate RecordedWithin the past 12 months we worried whether our food would run out before we got money to buy more.Never True11/25/2022Within the past 12 months the food we bought just didn't last and we didn't have money to get more.Never True3Purpose - LifeAnswerDate RecordedPurpose and direction in wpsbZlzfvkj97/13/2021CommentsNoSex and Gender Information ValueDate RecordedSex Assigned at BirthNot on fileLegal QfbCgszbc50/06/2015 11:40 AM EDTGender IdentityNot on fileSexual OrientationNot on file Last Filed Vital Signs Vital SignReadingTime TakenCommentsBlood Zsuraxwc058/70011/25/2022 10:15 AM EDT Hecgi4681 9:29 AM DLSMdjgkopdgqd90.7 ??C (98 ??F)11/25/2022 9:29 AM EDT Respiratory Jwld549311/25/2022 9:29 AM EDTOxygen Zwkizrwcvv84%11/25/2022 10:15 AM EDTInhaled Oxygen Concentration--Rvohax13.8 kg (198 lb)11/25/2022 9:29 AM EDT Veobde384.2 cm (5' 7 )11/25/2022 9:29 AM EDTBody Mass Index31.01011/25/2022 9:29 AM EDT Plan of Treatment Health MaintenanceDue DateLast DoneCommentsDepression Mnvlekzqg24/13/1973Tobacco Erzdgexzj23/13/1973DTaP,Tdap and Td Vaccines (1 - Tdap)08/21/1979Zoster (Shingles) Vaccine (1 of 2)2010dult BMI Khqyxvrcl31 COVID-19 Vaccine (2 - season)/Influenza Vaccine /, 01/03/2021, 02/07/2020 Medical Devices Not on file Insurance Care Teams Team MemberRelationshipSpecialtyStart DateEnd Date Hunter Sorensen [place] [address] [place] [address] [facility]07/30/16
--- OUTSIDE RECORDS SUMMARY | 2024-12-31 13:40 | XMS_ITS | Encounter Summary ---
Author Organization [facility] Address [address] [place] [address] Care Team Providers Care Educational Program Assistant Name Role Phone Hunter Sorensen MD Primary Care Provider [phone] Risa Reese SENIOR FRONT END ENGINEER Unavailable [phone] Encounter Details DateTypeDepartmentCare Team (Latest Contact Info)Wlcaghihbnw37/23/2025bstract [facility] [address] [place] [address] [place] [address] Rufino Rush DPM 3006 [facility] 5 [place] [address] Social History Tobacco UseTypesPacks/DayYears UsedDateSmoking Tobacco: Every DayCigarettes Smokeless Tobacco: NeverAlcohol UseStandard Drinks/WeekCommentsYes0 (1 standard drink = 0.6 oz pure alcohol)caffeine intake:2-3 cups per dayPHQ-2AnswerDate RecordedPatient Health Questionnaire-2 Mptbs015CommentsUnknown Sex and Gender InformationValueDate RecordedSex Assigned at BirthNot on file Legal PhwZugcbg25/15/2023 7:09 PM EDTGender IdentityNot on fileSexual OrientationNot on filedocumented as of this encounter Plan of Treatment DateTypeDepartmentCare Team (Latest Contact Info)Tmzwsuirmsi51/29/2025 10:00 AM EDTOffice Visit [facility] [place] [facility] [address] [place] [address] [place] [address] Risa Reese NP [address] [place] [address] [place], [place] [address] 01/06/2025 3:20 PM EDTOffice Visit [facility] [address] [facility] 120 [place] [address] Rufino Rush DPRyan 3006 [facility] 5 [place] [address] documented as of this encounter Visit Diagnoses Not on filedocumented in this encounter Additional Health Concerns AssessmentNoted TimePHQ-9 Depression Total Score: 13010/05/2024 9:53 AM EDT documented as of this encounter Care Teams Team MemberRelationshipSpecialtyStart DateEnd Date Hunter Sorensen MD [address] [facility] 110 [place] [address] PCP - GeneralFamily Medicine07/16/22 Risa Reese NP [address] [facility] 110 [place] [address] PCP - ACO Reach07/09/23documented as of this encounter
--- OUTSIDE RECORDS SUMMARY | 2024-12-31 13:40 | XMS_ITS | Clinical Summary ---
Author Organization [facility] Address [address] [facility] [address], [address] [place] [address] Care Team Providers Care Charging Plug Placer Name Role Phone Risa Reese YANIRA - MANAGER MILITARY Primary Care Provider Allergies No known active [...] InformationValueDate RecordedSex Assigned at BirthNot on fileLegal MutGyazho02/10/2013 2:40 PM ESTGender IdentityNot on fileSexual OrientationNot on file Last Filed Vital Signs Vital SignReadingTime TakenCommentsBlood Jsacplag865/6409 4:18 PM EDT Ivmby6479 4:18 PM KSYSvjwiewyocb13.6 ??C (99.6 ??F)11/23/2017 2:04 PM EDTRespiratory Toru9522 4:18 PM EDTOxygen Natxdhjwca88%11/23/2017 4:18 PM EDTInhaled Oxygen Concentration--Crxsrc45.6 kg (180 lb)11/23/2017 2:04 PM EDT Olyiud129.2 cm (5' 7 )11/23/2017 2:04 PM EDTBody Mass Index28.19011/23/2017 2:04 PM EDT Plan of Treatment Not on file Insurance [address] [place] [address] Care Teams Team MemberRelationshipSpecialtyStart DateEnd Date Risa Reese APRN - HOMAR PCP - GeneralFamily Nurse Practitioner11/23/17
--- OUTSIDE RECORDS SUMMARY | 2024-12-31 13:41 | XMS_ITS | Clinical Summary ---
Author Organization [facility] Address [address] [facility] [place] [address] Care Team Providers Care Eating Disorder Psychologist Name Role Phone Hunter Maria MD Primary Care Provider Risa Reese HARDWOOD FINISHER Unavailable Allergies No known active allergies Medications MedicationSigDispense [...] crush, chew, or split. 180 tablet 506Active Bhigvidkotj-Vzwsthxpt-Sjzadj (Trelegy Ellipta) 100-62.5-25 MCG/ACT aerosol powder Indications:Chronic [...] 30 capsule /Expired Active Problems ProblemNoted DateDiagnosed VsfcZqjxmgvg72/02/2378Ggdkiay09/11/2023hest pain 12/09/2022cquired absence of uterus with remaining cervical stump09/24/2022 History of total gzniwlurwgto03/18/3033Thojulx42/18/2023ardiac ischemia 09/24/2022ngina ehtayefbq63/18/2023arotid artery anbepzqk87/18/2023hronic obstructive pulmonary fultaxn9209/24/20220308Qqtcfexdlj62/18/2023ifficulty swallowing 09/24/2022Essential xnnrhssfpqny44/18/6552Envekqnfr98/18/2023 Psjbssogcjsdsgcxaswg46/18/1376Vyrgtydkanqarh66/18/6515Gmegauip71/18/2023 Hrtajiriiyoc26/18/2023New daily persistent kqnavefd05/18/2023OSA (obstructive sleep apnea)09/24/2022Overactive ljlmjuw7209/24/2022Restless leg syndrome 09/24/2022Iron deficiency msawbe4005/16/2020bnormal nuclear stress test12/05/2017 Overview (12/09/2022): Added automatically from request for surgery [id number] Musculoskeletal pain01/29/2011 Encounters DateTypeDepartmentCare ZalsJruuhcxxgfz62/23/2025bstract [facility] [address] [address] Rufino Rush DPM 12/28/2024linisync Result Encounter [facility] External Department Unsolicited Provider, Generic External Data 12/23/2024 10:45 AM EDTAncillary Procedure [facility] [address] [address] 12/23/2024 10:30 AM EDTOffice Visit [facility] [address] [facility] 120 [place] [address] Rufino Rush DPM Osteomyelitis of ankle or foot, acute, right (HCC) (Primary Dx); PVD (peripheral vascular disease); Cellulitis of right foot; Diabetes mellitus due to underlying condition with diabetic polyneuropathy, unspecified whether residential insulin use (HCC); Foot ulcer, right, with fat layer exposed (HCC)5Bamboo flowsheet [facility] [address] [facility] 120 [place] [address] Rufino Rush DPM 12/23/20248951Ybjofx04/14/2025bstract [facility] [address] [facility] [address] [place] [address] Rufino Rush DPM 12/21/2024Refill [facility] [place] [facility] [address] [facility] 110 [place] [address] Risa Reese NP BMI 37.0-37.9, adult; BRYAN (obstructive sleep apnea)12/17/2024bstract [facility] [address] [facility] [address] [place] [address] Rufino Rush DPM 12/17/2024Refill [facility] [place] [facility] [address] [facility] 110 [place] [address] Marianna Vincent PA Iiarmrnvvnga24/09/2025 2:20 PM EDTOffice Visit [facility] [address] [facility] [address] [place] [address] Rufino Rush, DPRyan Foot ulcer, right, with fat layer exposed (HCC) (Primary Dx); Cellulitis of right foot; Diabetes mellitus due to underlying condition with diabetic polyneuropathy, unspecified whether residential insulin use (HCC); PVD (peripheral vascular disease)12/16/2024 2:00 PM EDTOffice Visit [facility] [place] [facility] [address] [facility] [address] [place] [address] Risa Reese NP BMI 37.0-37.9, adult (Primary Dx); Restless leg syndrome; Hypercholesterolemia; Essential hypertension; Moderate mixed hyperlipidemia not requiring statin therapy; Chronic obstructive pulmonary disease, unspecified COPD type (HCC); BRYAN (obstructive sleep apnea); Fibromyalgia; Bilateral leg edema; Generalized edema; Major depressive disorder, single episode, mild12/16/2024amboo flowsheet [facility] [place] [facility] [address] [facility] [address] [place] [address] Risa Reese, JESSICA 12/16/20248417Jdgfld62/29/2025 10:00 AM EDTOffice Visit [facility] [place] [facility] [address] [place] [address] [place] [address] Risa Reese, JESSICA Restless leg syndrome (Primary Dx); Bilateral leg edema10/05/2024amboo flowsheet [facility] [place] [facility] [address] [facility] [address] [place] [address] Risa Reese, JESSICA 10/05/2024Travelfrom Last 3 Months Immunizations ImmunizationAdministration DatesNext DueInfluenza, injectable, quadrivalent, preservative free12/24/2021,01/03/2021,02/07/2020 Family History Medical HistoryRelationNameCommentsAlzheimer's diseaseFatherDiabetesFather RelationNameStatusCommentsFatherDeceasedMotherDeceased Social History Tobacco UseTypesPacks/DayYears UsedDateSmoking Tobacco: Every DayCigarettes Smokeless Tobacco: Never Tobacco Cessation:Ready to Q uit: Not Asked; Counseling Given: Yes Alcohol UseStandard Drinks/WeekCommentsYes0 (1 standard drink = 0.6 oz pure alcohol)caffeine intake:2-3 cups per dayPHQ-2AnswerDate RecordedPatient Health Questionnaire-2 Gncxa736CommentsUnknownSex and Gender InformationValueDate RecordedSex Assigned at BirthNot on fileLegal SexFemale 05/22/2022 7:09 PM EDTGender IdentityNot on fileSexual OrientationNot on file Last Filed Vital Signs Vital SignReadingTime TakenCommentsBlood Lywqiydy354/6810 2:09 PM EDT Yjbbx209412/16/2024 2:09 PM EURRiwfakrnvwq29.9 ??C (96.7 ??F)05/13/2024 2:44 PM ESTRespiratory Frcf5516 10:28 AM EDTOxygen Przyfngqgd79%12/16/2024 2:09 PM EDTInhaled Oxygen Concentration--Bkatll301 kg (237 lb)12/23/2024 10:28 AM EDT Birqqk434.2 cm (5' 7 )12/23/2024 10:28 AM EDTBody Mass Index37.121 10:28 AM EDT Plan of Treatment DateTypeDepartmentCare Team (Latest Contact Info)Bswriuyiwfl70/29/2025 10:00 AM EDTOffice Visit [facility] [place] [facility] 112 [facility] 110 [place] [address] Risa Reese, JESSICA 112 [facility] 110 [place] [address] 01/06/2025 3:20 PM EDTOffice Visit [facility] 112 [facility] 120 [place] [address] Rufino Rush DPM 3006 [facility] 5 [place] [address] Health MaintenanceDue DateLast DoneCommentsCT Exakzhwgzyii63/13/1961FIT-DNA 1960FIT1960FOBT1960 7510Tjahmingsqebw56/13/1961Diabetes: Retinopathy Qyzbdnztq46/13/1971Diabetes: Urine Protein Nuhojekef08/13/1980 Hxoagjodq50/06/2020, 08/11/2020, 01/13/2019, Additional history exists Diabetes: Hemoglobin A1C501/, 09/25/2023Influenza Vaccine (#1) 510/, 01/03/2021, 02/07/2020Medicare Annual Wellness (AWV) 6003/30/2024, 12/10/20222299Ocmshlcbhlm54Colorectal Cancer Msokmcwpt11/05/2029 Procedures Procedure NamePriorityDate/TimeAssociated DiagnosisCommentsSEGMENTAL BLOOD YHAUTAFP76/21/2025 9:16 AM EDT XR FOOT 3+ VIEWS ZAUPEKpqnsul31/16/2025 10:44 AM EDT Foot ulcer, right, with fat layer exposed (HCC) POCT GLYCOSYLATED HEMOGLOBIN (HGB A1C)Mglhefh1703/30/2024 10:56 AM EST Type 2 diabetes mellitus without complication, without long-term current use of insulin (HCC) BI MAMMOGRAM SCREENING TOMOSYNTHESIS NHAPGGUKZChouqnk96/04/2021 Encounter for screening mammogram for malignant neoplasm of breast Encounter for general adult medical examination without abnormal findings LXEMIXDTBHAMhhiutt18/05/2019 12:00 PM EST from Last 3 Months or Most Recently Relevant to Health Maintenance Results * SEGMENTAL BLOOD PRESSURE (12/28/2024 9:16 AM EDT)Anatomical RegionLaterality ModalityRadiographic ImagingSpecimen (Source)Anatomical Location / Laterality Collection Method / VolumeCollection TimeReceived Time12/28/2024 9:16 AM EDT Narrative 12/28/2024 8:07 PM EDT [facility] ?[address] ? [place] [address] ? Cardiology Report ? Signed ? Patient: RONN CORONEL ?MR#: [id number] ?? : 1960 ?Acct:[id number] ?? Age/Sex: 64 / F ?ADM Date: 12/28/24 ?? Loc: CARD ? Attending Dr: RUFINO RUSH ? Ordering Physician: RUFINO RUSH ?? Date of Service: 12/28/24 ?? Procedure(s): CA segmental UE or LE DANNY ?? Accession Number(s): [id number] ? cc: HUNTER MARIA ; RUFINO RUSH ?[facility] ? Test Date: ?2024-12-28 ?? Pat Name: ? RONN CORONEL ?Department: ? Room: ? - ?? Gender: ? Female ? Rim Fire Charger Operator: ?? Henna Vale ?? : ?1960 ? Requested By: RUFINO RUSH ?? Order Number: [id number] ?Reading : ?? JAYCE ??Vivi BUSBY ? Interpretive Statements [...] 2007 ? DD/ 0916 ? TD/TT: ? Apartment Assistant Manager: Procedure Note Radiology, Radiologist, MD - 12/28/[address] [address] Cardiology Report Signed Patient: RONN CORONEL R#: [id number] : 1Acct:[id number] Age/Sex: 64 / FADM Date: 12/28/24 Loc: CARD Attending Dr: RUFINO RUSH Ordering Physician: RUFINO RUSH Date of Service: 12/28/24 Procedure(s): CA segmental UE or LE DANNY Accession Number(s): [id number] cc: HUNTER MARIA ; RUFINO RUSH [facility] Test Date: 2024-12-28 Pat Name: RONN CORONEL Department: Room: - Gender: Female Rim Fire Charger Operator: Henna Vale : 1960 Requested By: RUFINO RUSH Order Number: [id number] Reading MD: JAYCE BUSBY M.D. Interpretive Statements [...] JAYCE BUSBY Signed By:12/28/24200612/28/242006 DD/ 5 TD/TT: Apartment Assistant Manager: Authorizing ProviderResult TypeResult StatusGeneric External Data ProviderIMG XR PROCEDURESFinal Result * XR foot 3+ views right (12/23/2024 [...] / VolumeCollection TimeReceived TimeBloodVenous blood specimen / Fxylnyj9103/30/2024 10:56 AM EST Narrative Authorizing ProviderResult TypeResult StatusRisa Reese NPPOINT OF CARE TEST ENTER/EDIT ORDERABLESFinal Result * Bilateral screening mammogram with tomosynthesis (08/11/2020)Anatomical Region LateralityModalityBreastBilateralMammographySpecimen (Source)Anatomical Location / LateralityCollection Method / VolumeCollection TimeReceived Time Narrative 08/11/2020 12:00 AM EDT PERFORMED AT [facility] LOCATION:[place] [address] RESULTS BELOW MAMM SCREENING BILATERAL [...] Note CONVERSION, GENERIC - 09/13/[address] [facility] LOCATION:[place] [address] RESULTS BELOW MAMM SCREENING BILATERAL [...] MAMM 1 YR Authorizing ProviderResult TypeResult StatusHunter Maria MDIMG BI PROCEDURES Final Result * Colonoscopy (02/11/2019 12:00 PM EST)Anatomical RegionLateralityModality EndoscopySpecimen (Source)Anatomical Location / LateralityCollection Method / VolumeCollection TimeReceived Time02/11/2019 12:00 PM EST Narrative 02/11/2019 12:00 PM EST PERFORMED AT [facility] LOCATION:[id number] Procedure Note CONVERSION, GENERIC - 07/24/[address] [facility] LOCATION:[id number] Authorizing ProviderResult TypeResult StatusTroy Hoover MDENDOSCOPY PROCEDURE ORDERABLESFinal Result from Last 3 Months or Most Recently Relevant to Health Maintenance Insurance [address] [place] [address] Care Teams Team MemberRelationshipSpecialtyStart DateEnd Date Hunter Maria MD [address] [place] [address] [place] [address] PCP - GeneralFamily Medicine07/16/22 Risa Reese NP [address] [place] [address] [place] [address] PCP - ACO Reach07/09/23
--- OUTSIDE RECORDS SUMMARY | 2024-12-31 13:41 | XMS_ITS | Encounter Summary ---
Author Organization [facility] Address [address] [place] [address] Care Team Providers Care Debt And Budget Counselor Name Role Phone Hunter Sorensen MD Primary Care Provider [phone] Risa Reese ROUTE DELIVERY SERVICE DRIVER Unavailable [phone] Encounter Details DateTypeDepartmentCare Team (Latest Contact Info)Bewrptxbzbb23/16/2025amboo flowsheet [facility] [address] [place] [address] [place] [address] Rufino Rush, OMAR [address] [facility] 5 [place] [address] Social History Tobacco UseTypesPacks/DayYears UsedDateSmoking Tobacco: Every DayCigarettes Smokeless Tobacco: NeverAlcohol UseStandard Drinks/WeekCommentsYes0 (1 standard drink = 0.6 oz pure alcohol)caffeine intake:2-3 cups per dayPHQ-2AnswerDate RecordedPatient Health Questionnaire-2 Kjiia423CommentsUnknown Sex and Gender InformationValueDate RecordedSex Assigned at BirthNot on file Legal TubXmlsct66/15/2023 7:09 PM EDTGender IdentityNot on fileSexual OrientationNot on filedocumented as of this encounter Plan of Treatment DateTypeDepartmentCare Team (Latest Contact Info)Dccltabarna56/29/2025 10:00 AM EDTOffice Visit [facility] [place] [facility] [address] [place] [address] [place] [address] Risa Reese NP [address] [place] [address] [place], [place] [address] 01/06/2025 3:20 PM EDTOffice Visit [facility] [address] [facility] 120 [place] [address] Rufino Rush DPRyan 3006 [facility] 5 [place] [address] documented as of this encounter Visit Diagnoses Not on filedocumented in this encounter Additional Health Concerns AssessmentNoted TimePHQ-9 Depression Total Score: 13010/05/2024 9:53 AM EDT documented as of this encounter Care Teams Team MemberRelationshipSpecialtyStart DateEnd Date Hunter Sorensen MD [address] [facility] 110 [place] [address] PCP - GeneralFamily Medicine07/16/22 Risa Reese NP [address] [facility] 110 [place] [address] PCP - ACO Reach07/09/23documented as of this encounter
--- OUTSIDE RECORDS SUMMARY | 2024-12-31 13:41 | XMS_ITS | Encounter Summary ---
Author Organization [facility] Address [address] [place] [address] Care Team Providers Care Director Of Program Management Name Role Phone Hunter Sorensen MD Primary Care Provider [phone] Risa Reese CATHETERIZATION LABORATORY TECHNICIAN Unavailable Reason for Referral * Medications - DeniedSpecialtyDiagnoses / ProceduresReferred By ContactReferred To Contact Diagnoses BMI 37.0-37.9, adult BRYAN (obstructive sleep apnea) Risa Reese NP [address] [facility] 110 [place] [address] Phone: tel: fax: Referral IDStatusReasonStart DateExpiration DateVisits RequestedVisits [id number] Reason for Visit * ReasonCommentsMed Change Request Encounter Details DateTypeDepartmentCare Team (Latest Contact Info)Cibwdrkhozv36/14/2025Refill [facility] [place] [facility] [address] [facility] 110 [place] [address] Risa Reese NP [address] [place] [address] [place] [address] BMI 37.0-37.9, adult; BRYAN (obstructive sleep apnea) Social History Tobacco UseTypesPacks/DayYears UsedDateSmoking Tobacco: Every DayCigarettes Smokeless Tobacco: NeverAlcohol UseStandard Drinks/WeekCommentsYes0 (1 standard drink = 0.6 oz pure alcohol)caffeine intake:2-3 cups per dayPHQ-2AnswerDate RecordedPatient Health Questionnaire-2 Jfeah465CommentsUnknown Sex and Gender InformationValueDate RecordedSex Assigned at BirthNot on file Legal RdgQohrlg05/15/2023 7:09 PM EDTGender IdentityNot on fileSexual OrientationNot on filedocumented as of this encounter Plan of Treatment DateTypeDepartmentCare Team (Latest Contact Info)Hgiajixrbmf27/29/2025 10:00 AM EDTOffice Visit [facility] [place] [facility] [address] [facility] 110 [place] [address] Risa Reese, CATHETERIZATION LABORATORY TECHNICIAN [address] [facility] 110 [place] [address] 01/06/2025 3:20 PM EDTOffice Visit [facility] [address] [facility] 120 [place] [address] Rufino Rush DPM 3006 [facility] 5 [place] [address] documented as of this encounter Visit Diagnoses Diagnosis BMI 37.0-37.9, adult BRYAN (obstructive sleep apnea) Obstructive sleep apnea (adult) (pediatric) Osteomyelitis of ankle or foot, acute, right (HCC)- Primary PVD (peripheral vascular disease) Unspecified peripheral vascular disease Cellulitis of right foot Diabetes mellitus due to underlying condition with diabetic polyneuropathy, unspecified whether buttermaker insulin use (HCC) Foot ulcer, right, with fat layer exposed ([facility]) documented in this encounter Additional Health Concerns AssessmentNoted TimePHQ-9 Depression Total Score: 13010/05/2024 9:53 AM EDT documented as of this encounter Care Teams Team MemberRelationshipSpecialtyStart DateEnd Date Hunter Sorensen MD [address] [facility] 110 [place] [address] PCP - GeneralFamily Medicine07/16/22 Risa Reese, CATHETERIZATION LABORATORY TECHNICIAN [address] [facility] 110 [place] [address] [facility] 07/09/23documented as of this encounter
--- OUTSIDE RECORDS SUMMARY | 2024-12-31 13:41 | XMS_ITS | Encounter Summary ---
Author Organization [facility] Address [address] [place] [address] Care Team Providers Care Residence Supervisor Name Role Phone Hunter Sorensen MD Primary Care Provider [phone] Risa Reese WILDLAND FIRE FIGHTER SPECIALIST Unavailable [phone] Encounter Details DateTypeDepartmentCare Team (Latest Contact Info)Ejzsdiqfscb98/10/2025bstract [facility] [address] [place] [address] [place] [address] Rufino Rush DPM [address] [facility] 5 [place] [address] Social History Tobacco UseTypesPacks/DayYears UsedDateSmoking Tobacco: Every DayCigarettes Smokeless Tobacco: NeverAlcohol UseStandard Drinks/WeekCommentsYes0 (1 standard drink = 0.6 oz pure alcohol)caffeine intake:2-3 cups per dayPHQ-2AnswerDate RecordedPatient Health Questionnaire-2 Xcjgl010CommentsUnknown Sex and Gender InformationValueDate RecordedSex Assigned at BirthNot on file Legal OddKntrda87/15/2023 7:09 PM EDTGender IdentityNot on fileSexual OrientationNot on filedocumented as of this encounter Plan of Treatment DateTypeDepartmentCare Team (Latest Contact Info)Jchlmjbphlu68/29/2025 10:00 AM EDTOffice Visit [facility] [place] [facility] [address] [place] [address] [place] [address] Risa Reese NP [address] [place] [address] [place], [place] [address] 01/06/2025 3:20 PM EDTOffice Visit [facility] [address] [facility] 120 [place] [address] Rufino Rush DPRyan [address] [facility] 5 [place] [address] documented as of this encounter Visit Diagnoses Not on filedocumented in this encounter Additional Health Concerns AssessmentNoted TimePHQ-9 Depression Total Score: 13010/05/2024 9:53 AM EDT documented as of this encounter Care Teams Team MemberRelationshipSpecialtyStart DateEnd Date Hunter Sorensen MD [address] [facility] 110 [place] [address] PCP - GeneralFamily Medicine07/16/22 Risa Reese NP [address] [facility] [address] [place] [address] PCP - ACO Reach07/09/23documented as of this encounter
--- OUTSIDE RECORDS SUMMARY | 2024-12-31 13:41 | XMS_ITS | Encounter Summary ---
Author Organization [facility] Address [address] [place] [address] Care Team Providers Care Associate Financial Analyst Name Role Phone Hunter Sorensen MD Primary Care Provider [phone] Risa Reese 4TH GRADE MATH TEACHER Unavailable [phone] Encounter Details DateTypeDepartmentCare Team (Latest Contact Info)Dfdadmoahwt36/10/2025Refill [facility] [address] [place] [place] [phone] Marianna Vincent PA [address] [place] [address] Fibromyalgia Social History Tobacco UseTypesPacks/DayYears UsedDateSmoking Tobacco: Every DayCigarettes Smokeless Tobacco: NeverAlcohol UseStandard Drinks/WeekCommentsYes0 (1 standard drink = 0.6 oz pure alcohol)caffeine intake:2-3 cups per dayPHQ-2AnswerDate RecordedPatient Health Questionnaire-2 Pssmk551CommentsUnknown Sex and Gender InformationValueDate RecordedSex Assigned at BirthNot on file Legal OafNorntr58/15/2023 7:09 PM EDTGender IdentityNot on fileSexual OrientationNot [...] 12/17/2024 6:05 AM EDT Hi, this is [facility] pharmacy calling in [place] [phone] calling on patient Rosaline Childs data both [phone], we received a train with all prescription [...] resend the prescription once again, [facility] in [place] [phone]. Thank you. documented in this encounter Plan of Treatment DateTypeDepartmentCare Team (Latest Contact Info)Nwijyprpymb63/29/2025 10:00 AM EDTOffice Visit [facility] [address] [place] [place] [address] Risa Reese, JESSICA [address] [place] [address] 01/06/2025 3:20 PM EDTOffice Visit [facility] [address] [place] [address] Rufino Rush DPM [address] [facility] 5 [place] [address] documented as of this encounter Visit Diagnoses Diagnosis Fibromyalgia Unspecified myalgia and myositis Osteomyelitis of ankle or foot, acute, right (HCC)- Primary PVD (peripheral vascular disease) Unspecified peripheral vascular disease Cellulitis of right foot Diabetes mellitus due to underlying condition with diabetic polyneuropathy, unspecified whether watermelon inspector insulin use (HCC) Foot ulcer, right, with fat layer exposed (HCC) documented in this encounter Additional Health Concerns AssessmentNoted TimePHQ-9 Depression Total Score: 9:53 AM EDT documented as of this encounter Care Teams Team MemberRelationshipSpecialtyStart DateEnd Date Hunter Sorensen MD [address] [facility] [address] [place] [address] [facility] - [facility]22 Risa Reese NP [address] [facility] [address] [place] [address] PCP - ACO [facility]07/09/23documented as of this encounter
--- OUTSIDE RECORDS SUMMARY | 2024-12-31 13:41 | XMS_ITS | Encounter Summary ---
Author Organization [facility] Address [address] [place] [address] Care Team Providers Care Education Sales Consultant Name Role Phone Hunter Sroensen MD Primary Care Provider [phone] Risa Reese TRANSIT AUTHORITY POLICE OFFICER Unavailable [phone] Encounter Details DateTypeDepartmentCare Team (Latest Contact Info)Pophemolqaq07/14/2025bstract [facility] [address] [place] [address] Rufino Rush DPM [address] [facility] 5 [place] [address] Social History Tobacco UseTypesPacks/DayYears UsedDateSmoking Tobacco: Every DayCigarettes Smokeless Tobacco: NeverAlcohol UseStandard Drinks/WeekCommentsYes0 (1 standard drink = 0.6 oz pure alcohol)caffeine intake:2-3 cups per dayPHQ-2AnswerDate RecordedPatient Health Questionnaire-2 [id number] Sex and Gender InformationValueDate RecordedSex Assigned at BirthNot on file Legal DagTrqull12/15/2023 7:09 PM EDTGender IdentityNot on fileSexual OrientationNot on filedocumented as of this encounter Plan of Treatment DateTypeDepartmentCare Team (Latest Contact Info)Kjrowtgyyqy83/29/2025 10:00 AM EDTOffice Visit [facility] [address] [place] [address] Risa Reese NP [address] [place], [place] [address] 01/06/2025 3:20 PM EDTOffice Visit [facility] [address] [facility] 120 [place] [phone] Rufino Rush DPRyan [address] [facility] 5 [place] [address] documented as of this encounter Visit Diagnoses Not on filedocumented in this encounter Additional Health Concerns AssessmentNoted TimePHQ-9 Depression Total Score: 13010/05/2024 9:53 AM EDT documented as of this encounter Care Teams Team MemberRelationshipSpecialtyStart DateEnd Date Hunter Sorensen MD [address] [facility] 110 [place] [address] PCP - GeneralFamily Medicine07/16/22 Risa Reese NP [address] [facility] 110 [place] [address] PCP - ACO [facility]07/09/23documented as of this encounter
--- OUTSIDE RECORDS SUMMARY | 2024-12-31 13:41 | XMS_ITS | Encounter Summary ---
Author Organization [facility] Address [address] [place] [address] Care Team Providers Care Head Of Commission Department Name Role Phone Hunter Sorensen MD Primary Care Provider [phone] Risa Reese POULTRY SLAUGHTERER Unavailable [phone] Encounter Details DateTypeDepartmentCare Team (Latest Contact Info)Cuhumvtguwh89/16/2025Travel Social History Tobacco UseTypesPacks/DayYears UsedDateSmoking Tobacco: Every DayCigarettes Smokeless Tobacco: NeverAlcohol UseStandard Drinks/WeekCommentsYes0 (1 standard drink = 0.6 oz pure alcohol)caffeine intake:2-3 cups per dayPHQ-2AnswerDate RecordedPatient Health Questionnaire-2 Suwco419CommentsUnknown Sex and Gender InformationValueDate RecordedSex Assigned at BirthNot on file Legal UnxUfgufm32/15/2023 7:09 PM EDTGender IdentityNot on fileSexual OrientationNot on filedocumented as of this encounter Plan of Treatment DateTypeDepartmentCare Team (Latest Contact Info)Dmcditevwyn81/29/2025 10:00 AM EDTOffice Visit [facility] [address] [place] [place] [address] Risa Reese NP [address] [place] [address] 01/06/2025 3:20 PM EDTOffice Visit [facility] [address] [place] [address] Rufino Rush DPM [address] [facility] 5 [place] [address] documented as of this encounter Visit Diagnoses Not on filedocumented in this encounter Additional Health Concerns AssessmentNoted TimePHQ-9 Depression Total Score: 9:53 AM EDT documented as of this encounter Care Teams Team MemberRelationshipSpecialtyStart DateEnd Date Hunter Sorensen MD [address] [facility] [address] [place] [address] PCP - GeneralFamily Medicine07/16/22 Risa Reese NP [address] [facility] [address] [place] [address] PCP - ACO [place]07/09/23documented as of this encounter
--- NOTE | 2024-12-31 13:44 | MR_ITS ---
[address] [address] Patient Name: RONN CORONEL MRN: [id number] date: 1960 Sex: F Assigned Patient Location: MRI Current Patient Location: MRI Accession/Order Number: [id number] Exam Date: 12/31/2024 14:05 Report Date: 12/31/2024 16:54 At the request of: [facility] Procedure: MR foot RT wo con MR foot RT wo con 12/31/2024 3:14 PM SIGNS AND SYMPTOMS: ^suspected right heel osteomyelitis PROTOCOL: Multiplanar multisequence MR images of the right ankle without contrast COMPARISON: None FINDINGS: Alignment: Normal. Fluid: Tibiotalar: No joint effusion. Subtalar: No joint effusion. Medial: Medial malleolus: Intact. Tendons: Posterior tibial tendon: Intact. Flexor digitorum longus: Intact. Flexor hallucis longus: Intact. Ligaments: Deltoid ligament complex - superficial: Intact. Deltoid ligament complex - deep: Intact. Spring (plantar calcaneo-navicular) ligament: Intact. Lateral: Lateral malleolus: Normal. Retromalleolar groove: Normal. Tendons: Peroneus longus: Intact. Peroneus brevis: Intact. Peroneal retinaculum: Intact. Ligaments: Anterior inferior tibiofibular (syndesmosis): Intact. Posterior inferior tibiofibular (syndesmosis): Intact. Anterior talofibular ligament: Intact. Calcaneofibular ligament: Intact. Posterior talofibular ligament: Intact. Posterior: Posterior talus: Normal. Intermalleolar ligament: Intact. Achilles tendon: Intact. Plantar fascia: Intact. Anterior: Tendons: Anterior tibial tendon: Intact. Extensor hallucis longus: Intact. Extensor digitorum longus: Intact. 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 Subtalar joint: Intact. Bones (other than subarticular marrow): Normal Muscles: Normal Tarsal tunnel: Normal Sinus tarsi: Normal. Soft tissues: There is soft tissue ulceration along the medial aspect of the posterior calcaneus. No underlying calcaneal signal abnormality is noted to suggest osteomyelitis. There is diffuse soft tissue edema throughout consistent with cellulitis. MR/MR foot RT wo con IMPRESSION: There is soft tissue ulceration along the medial aspect of the posterior calcaneus. No underlying calcaneal signal abnormality is noted to suggest osteomyelitis. There is diffuse soft tissue edema throughout consistent with cellulitis. 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 Impression dictated by: Jim Downey M.D. 12/31/2024 4:54 PM Dictation Location: [place] [address] Electronically authenticated by: [id number] Y Date: 12/31/2024 16:54
== END 2024-12-31 13:37 | disposition home or self-care (01) ==
LOC: MRI 13:36
PROVIDERS: PCP Family Medicine
DX: M86.171 Other acute osteomyelitis, right ankle and foot (principal); M94.271 Chondromalacia, right ankle and joints of right foot
CPT/HCPCS: 73718